=== PATIENT | male | born 1940 | race Caucasian/White ===

== ENCOUNTER → 2017-11-06 11:05 | Outpatient (CLI) | payer OTHER, SELFPAY | PROVIDERS: Family Provider Physician Assistant; PCP Physician Assistant; Visit Provider Urology | DX: Z12.5 Encounter for screening for malignant neoplasm of prostate (principal) | CPT/HCPCS: 36415; 84153 ==

== ENCOUNTER → 2018-01-02 08:27 | Outpatient (CLI) | payer OTHER, SELFPAY ==
--- NOTE | 2018-01-02 | DI.CT.S_ITS ---
PROCEDURE: CT SINUS SCREEN WO CON INDICATIONS: Right sided nose and maxillary discomfort TECHNIQUE: Noncontrast 3.0 mm axial images acquired from the frontal sinuses to the mid-sella, with coronal and sagittal reformats. For radiation dose reduction, the following was used: automated exposure control, adjustment of mA and/or kV according to patient size. COMPARISON: [facility], CT, SINUS WITHOUT CONTRAST, 04/11/2011, 11:19. [facility], CT, HEAD WITHOUT CONTRAST, 09/18/2014, 18:38. FINDINGS: Image quality: Excellent. Maxillary Sinuses: No bony remodeling or destruction. Sinuses are clear. Ethmoid Air Cells: No bony remodeling or destruction. Sinuses are clear. Sphenoid Sinuses: No bony remodeling or destruction. Sinuses are clear. Frontal Sinuses: No bony remodeling or destruction. Sinuses are clear. Ostiomeatal Complexes: Ostiomeatal complexes are patent, yet are constitutionally narrowed. Infraorbital air cells are seen. Miscellaneous: Visualized intra-orbital contents are normal. No eneida bullosa or paradoxical turbinate curvature. There is mild rightward nasal septal deviation. IMPRESSION: No significant active paranasal sinus disease is seen. Patent, yet constitutionally narrowed ostiomeatal complexes. Dictated by: Raheem Rosenbaum M.D. on 01/02/2018 at 8:40 Approved by: Raheem Rosenbaum M.D. on 01/02/2018 at 8:43
== END ==
PROVIDERS: PCP Physician Assistant; Visit Provider Otolaryngology
DX: J30.89 Other allergic rhinitis (principal)
CPT/HCPCS: 70486

== ENCOUNTER → 2018-03-21 10:19 | Outpatient (CLI) | payer OTHER, SELFPAY ==
[2018-03-21 11:00] LABS: BUN Creatinine Ratio 15.5 (6-22); Blood Urea Nitrogen 17 mg/dL (9-20); Calcium 9.1 mg/dL (8.4-10.2); Carbon Dioxide 28 mmol/L (22-32); Chloride 105 mmol/L (98-107); Estimated Glomerular Filt Rate > 60.0 mL/min (>60); Glucose 92 mg/dL (80-110); HEMOLYSIS < 15 (0-50); Potassium 4.2 mmol/L (3.4-5.1); Sodium 145 mmol/L (137-145)
[2018-03-21 11:48] LABS: Creatinine Urine Random 49.7 mg/dL
[2018-03-21 11:57] LABS: Microalbumin Urine Random < 0.6 mg/dL (0-1.6)
== END ==
PROVIDERS: PCP Physician Assistant; Visit Provider Physician Assistant
DX: I10 Essential (primary) hypertension (principal)
CPT/HCPCS: 36415; 80048; 82043; 82570

== ENCOUNTER → 2018-12-18 09:14 | Outpatient (CLI) | payer OTHER, SELFPAY | PROVIDERS: PCP Physician Assistant; Visit Provider Urology | DX: Z12.5 Encounter for screening for malignant neoplasm of prostate (principal) | CPT/HCPCS: 36415; 84153 ==

== ENCOUNTER → 2019-03-12 08:13 | Outpatient (CLI) | payer OTHER, SELFPAY ==
--- NOTE | 2019-03-12 | DI.US.S_ITS ---
PROCEDURE: US RENAL COMPLETE INDICATIONS: INCOMPLETE BLADDER EMPTYING TECHNIQUE: Real-time scanning was performed of the kidneys and bladder, with image documentation. COMPARISON: [facility], US, RENAL COMPLETE, 10/22/2015, 13:14. [facility], CT, KIDNEY/ URETER/BLADDER, 11/03/2015, 10:48. [facility], CT, KIDNEY/ URETER/BLADDER, 06/19/2013, 12:15. FINDINGS: Kidneys: Kidneys are normal in size. Right kidney measures 10.6 cm long; left kidney measures 13.4 cm long. Right renal cortical thickness is 1.2 cm; left renal cortical thickness is 1.3 cm. Renal cortical echotexture is normal. No hydronephrosis or nephrolithiasis. No suspicious solid mass lesions. There are 2 simple left renal cysts, largest measuring up to 2.2 cm. Bladder: Pre-void bladder volume is 280 mL. Post-void residual is 277 mL. Pre-void images demonstrate no intraluminal masses or stones. On pre-void images, neither ureteral jets are noted with color Doppler interrogation. (Of note, ureteral jets may not be detectable in up to 25% of cases due to insufficient differences in specific gravity between ureteral and bladder urine). Miscellaneous: No free pelvic fluid. IMPRESSION: 1. No evidence of hydronephrosis. 2. Large 277 cc post void residual volume. Dictated by: Alejandro Bobby [facility] Interpreted: Naun Connolly MD on 03/12/2019 at 9:17 Approved by: Naun Connolly M.D. on 03/12/2019 at 16:34
== END ==
PROVIDERS: PCP Physician Assistant; Visit Provider Urology
DX: R33.9 Retention of urine, unspecified (principal); Z87.442 Personal history of urinary calculi
CPT/HCPCS: 76770

== ENCOUNTER → 2019-05-02 07:59 | Outpatient (CLI) | payer OTHER, SELFPAY ==
[2019-05-02 09:03] LABS: Chloride 103 mmol/L (98-107); Cholesterol 162 mg/dL (140-199); HEMOLYSIS < 15 (0-50); Potassium 4.1 mmol/L (3.4-5.1); Sodium 140 mmol/L (137-145)
[2019-05-02 09:22] LABS: BUN Creatinine Ratio 15.8 (6-22); Blood Urea Nitrogen 19 mg/dL (9-20); Calcium 9.3 mg/dL (8.4-10.2); Carbon Dioxide 29 mmol/L (22-32); Estimated Glomerular Filt Rate 58.7 mL/min (>60); Glucose 96 mg/dL (80-110); HDL Cholesterol 50 mg/dL (40-60); LDL Cholesterol Calculated 95 mg/dL (<100); Triglycerides 85 mg/dL (35-150)
[2019-05-06 21:44] LABS: Fecal Immunochemical Test NOT DETECTED (NOT DETECTED)
== END ==
PROVIDERS: PCP Family Medicine; Referring Provider Family Medicine; Visit Provider Family Medicine
DX: Z13.220 Encounter for screening for lipoid disorders (principal); I10 Essential (primary) hypertension
CPT/HCPCS: 36415; 80048; 80061; 82274

== ENCOUNTER → 2019-09-30 15:06 | Outpatient (CLI) | payer OTHER, SELFPAY ==
--- NOTE | 2019-09-30 15:08 | DI.RAD.S_ITS ---
PROCEDURE: XR LUMBAR SPINE MIN 4V INDICATIONS: Back Pain TECHNIQUE: 5 views of the lumbar spine were acquired. COMPARISON: None. FINDINGS: Bones: 5 nonrib-bearing vertebrae are present. There is normal bony alignment. Mild to moderate degenerative disc disease is present along the lumbosacral spine, but there is no sign of subluxation. Facet osteoarthritis is mild to the L4-5 and especially the L5-S1 level where moderate facet osteoarthritis can be seen. No vertebral body compression fractures. No suspicious bony lesions. Soft tissues: Overlying bowel gas pattern is normal. No suspicious soft tissue calcifications. Oblique images: No pars defects. IMPRESSION: Mild to moderate degenerative changes as discussed over the lumbosacral spine most prominent at L4-5 and L5-S1. No compression fracture associated. Dictated by: Timoteo Conteh M.D. on 09/30/2019 at 15:53 Approved by: Timoteo Conteh M.D. on 09/30/2019 at 15:54
== END ==
PROVIDERS: PCP Family Medicine; Referring Provider Family Medicine; Visit Provider Family Medicine
DX: M54.9 Dorsalgia, unspecified (principal); M47.816 Spondylosis without myelopathy or radiculopathy, lumbar region; M47.817 Spondylosis without myelopathy or radiculopathy, lumbosacral region
CPT/HCPCS: 72110

== ENCOUNTER 2020-04-24 18:42 | Inpatient (IN) | payer OTHER, SELFPAY ==
--- NOTE | 2020-04-24 18:43 | DI.RAD.S_ITS ---
PROCEDURE: XR HIP W PEL IF DONE LT 2V INDICATIONS: fall with hip pain TECHNIQUE: AP pelvis with lateral view(s) of the left hip(s). COMPARISON: None. FINDINGS: Bones: Moderately displaced left subcapital femoral neck fracture which demonstrates moderate angulation. Pelvic ring appears intact. No suspicious bony lesions. Soft tissues: The visualized bowel gas pattern is normal. No suspicious soft tissue calcifications. IMPRESSION: Left subcapital femoral neck fracture as above Dictated by: David Guillermo M.D. on 04/24/2020 at 19:03 Approved by: David Guillermo M.D. on 04/24/2020 at 19:04
[2020-04-24 18:47] VITALS: BP 176/97; PULSE 98; RESP 16; TEMP 37.1; O2SAT 95; BMI 27.9
[2020-04-24 19:18] LABS: Add Manual Diff / Slide Review NO; Basophils Absolute Auto 0 /uL (0-100); Basophils Percent Auto 0.5 % (0-2); Eosinophils Absolute Auto 100 /uL (0-450); Eosinophils Percent Auto 0.8 % (2-4); Hemoglobin 13.8 g/dL (13.5-17.5); Lymphocytes Absolute Auto 1400 /uL (1100-4500); Lymphocytes Percent Auto 21.5 % (25-40); Mean Corpuscular HGB Conc 32.7 % (30-36); Mean Corpuscular Hemoglobin 31.2 PG (26-34); Mean Corpuscular Volume 95.2 fL (80-100); Monocytes Absolute Auto 400 /uL (0-900); Monocytes Percent Auto 6.6 % (3-14); Neutrophils Absolute Auto 4700 /uL (1500-7000); Neutrophils Percent Auto 70.6 % (50-75); Platelet Count 176 X10^3/uL (150-400); Red Blood Cell Count 4.41 X10^6/uL (4.5-5.9); Red Cell Distribution Width 13.1 % (11.6-14.8); White Blood Cell Count 6.6 X10^3/uL (4.5-11.0)
[2020-04-24 19:24] LABS: COVID19 -Nasal RAPID Negative (Negative)
[2020-04-24 19:28] LABS: BUN Creatinine Ratio 14.7 (6-22); Blood Urea Nitrogen 17 mg/dL (9-20); Calcium 8.5 mg/dL (8.4-10.2); Carbon Dioxide 28 mmol/L (22-32); Chloride 106 mmol/L (98-107); Estimated Glomerular Filt Rate > 60.0 mL/min (>60); Glucose 127 mg/dL (80-110); HEMOLYSIS < 15 (0-50); Potassium 3.6 mmol/L (3.4-5.1); Sodium 135 mmol/L (137-145)
--- NOTE | 2020-04-24 19:33 | ED.LOWEXIN ---
HPI - Extremity Injury (Lower) General Chief Complaint: Extremity Injury, Lower Stated Complaint: GLF, Left hip pain Time Seen by Provider: 04/24/20 18:43 Source: EMS Mode of arrival: EMS Limitations: no limitations History of Present Illness HPI Narrative: 79M nonsmoker with history of BPH presents by EMS for evaluation of severe left hip pain after a ground level fall just prior to arrival. He was in his normal state of health prior to the incident. He tripped over a local retaining wall and landed directly on his left hip. He denies any head neck back pain. He had no loss of consciousness and has full recall the event. He has severe left hip pain and is unable to ambulate. He denies any numbness, tingling weakness. He denies any prodromal symptoms such as dizziness, weakness or lightheadedness. He has had no exposure to persons with known COVID and denies any fever or chills. MD complaint: hip injury Onset (ago): minute(s) Injury: Left: hip Type of Injury: blunt Place: street/outdoors Severity: severe Relieving factors: immobilization and rest Exacerbating factors: weight bearing, movement and palpation Context: fall and direct blow Associated symptoms: unable to bear weight Other symptoms: none Treatments prior to arrival: spinal immobilization Related Data Home Medications Medication Instructions Recorded Confirmed ibuprofen 400 mg PO Q6H PRN #0 03/09/11 04/24/20 aspirin 81 mg tablet,delayed 81 mg PO DAILY 02/22/18 04/24/20 release cetirizine 10 mg tablet 10 mg PO DAILY tab 02/22/18 04/24/20 bphazrnipagq-dzp-acwug acid-vit 1 tab PO DAILY 02/22/18 04/24/20 K-lycop 400 mcg-20 mcg-370 mcg tablet tamsulosin 0.4 mg capsule 0.8 mg PO BEDTIME cap 02/22/18 04/25/20 Respironics Dreamstation CPAP #1 ea 06/20/18 04/24/20 clobetasol 0.05 % topical cream 1 applictn TOP BID PRN gram 12/19/18 04/24/20 finasteride 5 mg tablet 5 mg PO BEDTIME tab 12/19/18 04/24/20 clindamycin phosphate 1 % topical See Rx Instructions TOP BID PRN 04/30/19 04/24/20 solution ipratropium bromide 0.03 % nasal 2 spray NASAL BID 04/30/19 04/25/20 spray guaifenesin [Guaifenesin LA] 600 mg PO BID 04/24/20 04/24/20 Previous Rx's Medication Instructions Recorded tramadol 50 mg tablet 50 mg PO BID PRN #20 tab 09/30/19 Allergies Allergy/AdvReac Type Severity Reaction Status Date / Time adhesive tape Allergy Intermediate skin Verified 04/25/20 09:21 callus like alligator skin. latex [LATEX] Allergy Intermediate SKIN Verified 04/25/20 09:21 CALLUS LIKE ALLIGATOR SKIN Review of Systems Constitutional Constitutional: Denies chills, Denies fatigue, Denies fever(s), Denies frequent falls, Denies lethargy and Denies weakness Eyes Eyes: Denies change in vision, Denies eye discharge, Denies irritation and Denies loss of vision ENT Ears, Nose, Mouth, and Throat: Denies change in voice, Denies dizziness, Denies neck pain, Denies sore throat and Denies throat swelling Cardiovascular Cardiovascular: Denies chest pain, Denies irregular heart rhythm, Denies lightheadedness, Denies palpitations, Denies dyspnea, Denies dyspnea on exertion and Denies orthopnea Respiratory Respiratory: Denies cough, Denies dyspnea, Denies dyspnea on exertion and Denies wheezing Gastrointestinal Gastrointestinal: Denies abdominal pain, Denies change in bowel habits, Denies diarrhea, Denies nausea and Denies vomiting Musculoskeletal Musculoskeletal: Reports arthralgias, Reports limited range of motion, Denies neck pain and Denies numbness Integumentary/Breasts Skin/Breast: Denies pruritus, Denies erythema, Denies rash and Denies wounds Neurologic Neurologic: Denies behavioral changes, Denies confusion, Denies dizziness, Denies frequent falls, Denies loss of vision, Denies numbness and Denies weakness Psychiatric Psychiatric: Denies anxiety, Denies behavioral changes, Denies confusion, Denies depression, Denies homicidal ideation and Denies suicidal ideation Endocrine Endocrine: Denies fatigue, Denies flushing and Denies palpitations Hematologic/Lymphatic Hematologic/Lymphatic: Denies easy bruising Allergic/Immunologic Allergic/Immunologic: Denies urticaria, Denies throat swelling and Denies wheezing Patient History Medical History Allergies Chicken pox Chronic back pain Chronic cough Essential (primary) hypertension Excessive daytime sleepiness Hamstring strain History of basal cell carcinoma History of hypertension Measles Mumps Obstructive sleep apnea of adult Screen for colon cancer Sinusitis Surgical History Anesthesia Broken wrist (~1989) History of cataract removal with insertion of prosthetic lens History of laminectomy (~1986) History of nephrolithotomy with removal of calculi History of removal of cyst (~2004) History of testicular surgery History of tonsillectomy History of vasectomy Skin lesion (~2007) Status post hernia repair Family History Father Diabetes mellitus Heart disease Stroke Prostate cancer Mother Cancer Nervous breakdown Sister Cancer Grandfather Heart disease Grandmother Heart disease Grandfather No problems noted. Social History marital status: details: eneida Yee, lives in [place] household members: spouse lives independently: Yes caregiver/support person: No Smoking Status: Never smoker second hand exposure: No alcohol intake: never substance use type: does not use Smoking Status: Never smoker Substance Use Type: does not use Exam Narrative Exam Narrative: GENERAL: [71] year old patient appears stated age. Well-nourished, well-developed patient, in mild distress. GCS 15 HEAD: Atraumatic. Normocephalic. EYES: Pupils equal round and reactive. Extraocular motions intact. No scleral icterus. No injection or drainage. ENT: Nose without bleeding, purulent drainage. Throat without erythema, tonsillar hypertrophy or exudate. Airway patent. NECK: Trachea midline. Non tender CARDIOVASCULAR: Regular rate and rhythm without murmurs, gallops, or rubs. RESPIRATORY: Clear to auscultation. Breath sounds equal bilaterally. No wheezes, rales, or rhonchi. GASTROINTESTINAL: Abdomen soft, non-tender, nondistended. EXTREMITIES: No obvious shortening or external rotation, severe left hip pain with palpation. Closed, isolated neurovascularly intact BACK: Nontender without deformity or crepitance. No flank tenderness. NEURO: AOx3. SKIN: No rash or erythema of visible areas Initial Vital Signs Initial Vital Signs: Vital Signs Temperature 98.7 F 04/24/20 18:47 Pulse Rate 98 H 04/24/20 18:47 Respiratory Rate 16 04/24/20 18:47 Blood Pressure 176/97 H 04/24/20 18:47 Pulse Oximetry 95 04/24/20 18:47 Course Orders Ordered: Acetaminophen (Acetaminophen 325 Mg Tablet) 650 mg PO TID [facility] Last Admin: 04/25/20 20:17 Dose: 650 mg Documented by: Admin: 04/25/20 15:45 Dose: 650 mg Documented by: JENNIFER Docusate Sodium (Docusate 100 Mg Capsule) 100 mg PO BID [facility] Last Admin: 04/25/20 20:17 Dose: 100 mg Documented by: JENNIFER Enoxaparin Sodium (Enoxaparin 40 Mg/0.4 Ml Syringe) 40 mg SUBCUT DAILY [facility] Lactated Ringer's (Lactated Ringers) 1,000 mls @ 125 mls/hr IV CONT [facility] Last Admin: 04/25/20 22:11 Dose: 125 mls/hr Documented by: Infusion: 04/25/20 22:11 Dose: 125 mls/hr Documented by: Admin: 04/25/20 14:17 Dose: 125 mls/hr Documented by: FANNY Cefazolin Sodium/Dextrose (Ancef) 2 gm in 100 mls @ 200 mls/hr IV Q8H [facility] Stop: 04/26/20 02:29 Last Infusion: 04/25/20 20:07 Dose: 0 mls/hr Documented by: Admin: 04/25/20 17:56 Dose: 200 mls/hr Documented by: JENNIFER Naloxone HCl (Naloxone 0.4 Mg/Ml Vial) 0.2 mg IV Q2MIN PRN PRN Reason: Opiate Reversal Naloxone HCl (Naloxone 0.4 Mg/Ml Vial) 0.1 mg IV Q30MIN PRN PRN Reason: Nausea Stop: 04/26/20 13:56 Ondansetron HCl (Ondansetron 4 Mg/2 Ml Inj) 4 mg IV Q4HR PRN PRN Reason: Nausea And Vomiting Ondansetron HCl (Ondansetron 4 Mg Odt) 4 mg PO Q4HR PRN PRN Reason: Nausea Oxycodone HCl (Oxycodone Ir 5 Mg Tablet) 5 mg PO Q3HR PRN PRN Reason: Pain, Moderate (4-6) Pantoprazole Sodium (Pantoprazole 20 Mg Tablet) 20 mg PO 0600 [facility] Last Admin: 04/25/20 05:29 Dose: Not Given Documented by: DIPESH Polyethylene Glycol (Polyethylene Glycol 3350 17 Gm Powd.Pack) 17 gm PO DAILY PRN PRN Reason: Constipation Tamsulosin HCl (Tamsulosin 0.4 Mg Capsule) 0.8 mg PO BEDTIME [facility] Last Admin: 04/25/20 20:18 Dose: 0.8 mg Documented by: JENNIFER Discontinued Medications Acetaminophen (Acetaminophen 325 Mg Tablet) 650 mg PO Q6HR PRN PRN Reason: Fever/Mild Pain (1-3) Acetaminophen (Acetaminophen 325 Mg Tablet) 650 mg PO PACUNOW PRN PRN Reason: Pain, Mild (1-3) Hydrocodone Bitart/Acetaminophen (Hydrocodone/Acet 5/325 Tablet) 2 tab PO Q4HR PRN PRN Reason: Pain, Severe (7-10) Last Admin: 04/25/20 06:37 Dose: 2 tab Documented by: Admin: 04/24/20 22:06 Dose: 2 tab Documented by: UZIEL Bupivacaine HCl/Epinephrine Bitart (Bupivacaine 0.25% W/ Epi (Pf) 10 Ml Vial) 30 ml INJ NOW ONE Stop: 04/25/20 11:43 Last Admin: 04/25/20 11:42 Dose: 30 ml Documented by: AUDRA Bupivacaine Liposome (Bupivacaine Liposome 266 Mg/20 Ml Vial) 266 mg INJ INTRA-OP ONE Stop: 04/25/20 09:16 Last Admin: 04/25/20 10:18 Dose: 266 mg Documented by: ALMITA Sodium Chloride 250 ml/ (Epinephrine HCl 1 mg) 0 ml IRR INTRA-OP ONE Stop: 04/25/20 09:16 Last Admin: 04/25/20 10:18 Dose: 10 ml Documented by: TOO Docusate Sodium (Docusate 100 Mg Capsule) 100 mg PO BID [facility] Last Admin: 04/25/20 08:31 Dose: Not Given Documented by: Admin: 04/24/20 22:06 Dose: 100 mg Documented by: UZIEL Fentanyl (Fentanyl 100 Mcg/2 Ml Inj) 0 mcg IV Q5M PRN PRN Reason: Pain, Moderate (4-6) Finasteride (Finasteride 5 Mg Tablet) 5 mg PO BEDTIME [facility] Last Admin: 04/24/20 23:54 Dose: 5 mg Documented by: DIPESH Guaifenesin (Guaifenesin Er 600 Mg Tab) 600 mg PO BID [facility] Heparin Sodium (Porcine) (Heparin 5,000 Unit/Ml Vial) 5,000 unit SUBCUT NOW ONE Stop: 04/24/20 20:38 Last Admin: 04/24/20 21:51 Dose: Not Given Documented by: UZIEL Hydromorphone HCl (Hydromorphone 0.5 Mg Inj) 0.5 mg IV NOW ONE Stop: 04/24/20 19:50 Last Admin: 04/24/20 19:51 Dose: 0.5 mg Documented by: JEANETTE Sodium Chloride (Normal Saline 0.9%) 1,000 mls @ 100 mls/hr IV CONT [facility] Last Infusion: 04/25/20 14:09 Dose: 0 mls/hr Documented by: Admin: 04/25/20 08:30 Dose: 100 mls/hr Documented by: Infusion: 04/25/20 08:05 Dose: 100 mls/hr Documented by: Admin: 04/24/20 22:05 Dose: 100 mls/hr Documented by: UZIEL Lactated Ringer's (Lactated Ringers) 1,000 mls @ 42 mls/hr IV NOW ONE Stop: 04/26/20 08:59 Last Infusion: 04/25/20 13:27 Dose: 0 mls/hr Documented by: Admin: 04/25/20 11:13 Dose: 42 mls/hr Documented by: Infusion: 04/25/20 11:13 Dose: 42 mls/hr Documented by: Admin: 04/25/20 09:12 Dose: 42 mls/hr Documented by: KENDRICK Cefazolin Sodium/Dextrose (Ancef) 2 gm in 100 mls @ 200 mls/hr IV NOW ONE Stop: 04/25/20 09:44 Last Infusion: 04/25/20 10:00 Dose: 0 mls/hr Documented by: Admin: 04/25/20 09:28 Dose: 200 mls/hr Documented by: MAGAN Loratadine (Loratadine 10 Mg Tablet) 10 mg PO DAILY [facility] Last Admin: 04/25/20 08:31 Dose: Not Given Documented by: JUANA Metoprolol Tartrate (Metoprolol Ir 25 Mg Tablet) 25 mg PO NOW ONE Stop: 04/24/20 20:53 Last Admin: 04/24/20 22:06 Dose: 25 mg Documented by: UZIEL Naloxone HCl (Naloxone 0.4 Mg/Ml Vial) 0.2 mg IV Q2MIN PRN PRN Reason: Opiate Reversal Naloxone HCl (Naloxone 0.4 Mg/Ml Vial) 0.1 mg IV NOW ONE Stop: 04/25/20 13:57 Last Admin: 04/25/20 14:10 Dose: Not Given Documented by: FANNY Naloxone HCl (Naloxone 0.4 Mg/Ml Vial) 0.1 mg IV NOW ONE Stop: 04/25/20 13:57 Last Admin: 04/25/20 14:10 Dose: Not Given Documented by: FANNY Non-Formulary Medication (Cetirizine [Zyrtec]) 10 mg PO DAILY [facility] Non-Formulary Medication (Guaifenesin) 600 mg PO BID [facility] Last Admin: 04/25/20 00:14 Dose: Not Given Documented by: DIPESH Ondansetron HCl (Ondansetron 4 Mg Odt) 4 mg PO Q8HR PRN PRN Reason: Nausea And Vomiting Ondansetron HCl (Ondansetron 4 Mg/2 Ml Inj) 4 mg IV NOW PRN PRN Reason: Nausea And Vomiting Oxycodone HCl (Oxycodone Ir 5 Mg Tablet) 5 mg PO PACUNOW PRN PRN Reason: Mild or moderate pain Oxycodone/Acetaminophen (Oxycodone/Acetaminophen 5/325 Tablet) 1 tab PO PACUNOW PRN PRN Reason: Mild or Moderate Pain Sennosides (Sennosides 8.6 Mg Tablet) 17.2 mg PO BEDTIME [facility] Last Admin: 04/24/20 22:06 Dose: 17.2 mg Documented by: UZIEL Tamsulosin HCl (Tamsulosin 0.4 Mg Capsule) 0.8 mg PO BEDTIME [facility] Last Admin: 04/24/20 23:53 Dose: 0.8 mg Documented by: DIPESH Tramadol HCl (Tramadol 50 Mg Tablet) 50 mg PO BID PRN PRN Reason: pain Last Admin: 04/24/20 23:53 Dose: 50 mg Documented by: DIPESH Tranexamic Acid (Tranexamic Acid 1,000 Mg Vial) 1,000 mg INJ INTRA-OP PRN PRN Reason: intraop Last Admin: 04/25/20 12:03 Dose: 1,000 mg Documented by: Admin: 04/25/20 10:00 Dose: 1,000 mg Documented by: ALMITA Consultations Consultation #1: discussed with ortho (Love), keep NPO after midnight. Will take to OR tomorrow. Admit to medicine Vital Signs Vital signs: Vital Signs - 8 hr 04/24/20 18:47 Temperature 98.7 F Pulse Rate 98 H Respiratory Rate 16 Blood Pressure 176/97 H Pulse Oximetry 95 MDM - Extremity Injury (Lower) Lab Data Result diagrams: 04/25/20 05:05 04/25/20 05:05 Labs: Lab Results 04/24/20 04/24/20 04/24/20 Range/Units 19:06 19:10 19:10 WBC 6.6 (4.5-11.0) X10^3/uL RBC 4.41 L (4.5-5.9) X10^6/uL Hgb 13.8 (13.5-17.5) g/dL Hct 42.0 (41-53) % MCV 95.2 (80-100) fL MCH 31.2 (26-34) PG MCHC 32.7 (30-36) % RDW 13.1 (11.6-14.8) % Plt Count 176 (150-400) X10^3/uL Neut % (Auto) 70.6 (50-75) % Lymph % (Auto) 21.5 L (25-40) % Bryan % (Auto) 6.6 (3-14) % Eos % (Auto) 0.8 L (2-4) % Baso % (Auto) 0.5 (0-2) % Neut # (Auto) 4700 (1781-8049) /uL Lymph # (Auto) 1400 (9309-3887) /uL Bryan # (Auto) 400 (0-900) /uL Eos # (Auto) 100 (0-450) /uL Baso # (Auto) 0 (0-100) /uL PT (10.1-12.7) SECONDS INR (0.9-1.3) Sodium 135 L (137-145) mmol/L Potassium 3.6 (3.4-5.1) mmol/L Chloride 106 (98-107) mmol/L Carbon Dioxide 28 (22-32) mmol/L BUN 17 (9-20) mg/dL Creatinine 1.16 (0.66-1.25) mg/dL Estimated GFR > 60.0 (>60) mL/min BUN/Creatinine Ratio 14.7 (6-22) Glucose 127 H (80-110) mg/dL Calcium 8.5 (8.4-10.2) mg/dL SARS-CoV-2 (PCR) Negative (Negative) 04/24/20 Range/Units 19:10 WBC (4.5-11.0) X10^3/uL RBC (4.5-5.9) X10^6/uL Hgb (13.5-17.5) g/dL Hct (41-53) % MCV (80-100) fL MCH (26-34) PG MCHC (30-36) % RDW (11.6-14.8) % Plt Count (150-400) X10^3/uL Neut % (Auto) (50-75) % Lymph % (Auto) (25-40) % Bryan % (Auto) (3-14) % Eos % (Auto) (2-4) % Baso % (Auto) (0-2) % Neut # (Auto) (3514-4902) /uL Lymph # (Auto) (4340-0595) /uL Bryan # (Auto) (0-900) /uL Eos # (Auto) (0-450) /uL Baso # (Auto) (0-100) /uL PT 13.2 H (10.1-12.7) SECONDS INR 1.2 (0.9-1.3) Sodium (137-145) mmol/L Potassium (3.4-5.1) mmol/L Chloride (98-107) mmol/L Carbon Dioxide (22-32) mmol/L BUN (9-20) mg/dL Creatinine (0.66-1.25) mg/dL Estimated GFR (>60) mL/min BUN/Creatinine Ratio (6-22) Glucose (80-110) mg/dL Calcium (8.4-10.2) mg/dL SARS-CoV-2 (PCR) (Negative) Imaging Data Extremity x-ray #1: Radiologist's Impression: [address] [id number] ReportSigned Patient: David Vivar [facility]#: [id number]: 2Acct:[id number]/Sex: 79 / MDate of Service: 04/24/20Loc: EDAccession Number: [id number] Procedure: XR hip w pel if done LT 2V Ordering Provider: Stu Esparza D.O. PROCEDURE: XR HIP W PEL IF DONE LT 2V INDICATIONS: fall with hip pain TECHNIQUE: AP pelvis with lateral view(s) of the left hip(s). COMPARISON: None. FINDINGS: Bones: Moderately displaced left subcapital femoral neck fracture which demonstrates moderate angulation. Pelvic ring appears intact. No suspicious bony lesions. Soft tissues: The visualized bowel gas pattern is normal. No suspicious soft tissue calcifications. IMPRESSION: Left subcapital femoral neck fracture as above Dictated by: David Guillermo M.D. on 04/24/2020 at 19:03 Approved by: David Guillermo M.D. on 04/24/2020 at 19:04 Discharge Plan Departure Patient Disposition: Admitted As Inpatient Clinical Impression: Closed hip fracture Qualifiers: Encounter type: initial encounter Laterality: left Qualified Code(s): S72.002A - Fracture of unspecified part of neck of left femur, initial encounter for closed fracture Admit Date/Time: 04/24/20 19:35 Admit Provider: Sandra De Jesus
[2020-04-24] MEDS: HYDROMORPHONE 0.5 MG INJ IV (19:51)
[2020-04-24 20:05] VITALS: BP 181/97; PULSE 78; RESP 20; TEMP 36.9; O2SAT 93
[2020-04-24 20:35] VITALS: O2SAT 93
--- NOTE | 2020-04-24 20:43 | P.HP_ITS ---
History of Present Illness History of Present Illness Date Patient Seen: 04/24/20 Time Patient Seen: 20:32 Chief complaint: GLF, Left hip pain Narrative: Patient is a 79-year-old male at [facility], who presented to the emergency room via ambulance following a ground level fall and left hip injury. Patient has a history of sleep apnea, BPH, basal cell carcinoma, kidney stones, chronic sinusitis, and history of hypertension that he was able to resolve with diet and lifestyle changes. Upon admit patient reports that he was trying to get onto his tractor when he tripped over a raised piece of concrete, a colleague was present, patient was unable to get up independently, denies hitting his head or loss of consciousness. Patient denies experiencing any ches t pain, shortness of breath, shortness of breath, changes in vision, balance or coordination issues, weakness, dizziness prior during or following fall. His colleague had call ambulance for transport approximately 5:00 p.m. afternoon. At this time patient states that his pain is well controlled at a 6/10 due to medication management the emergency room. Patient denies any recent illness, frequent falls, injury, or trauma, any abnormal bruising bleeding disorders, or skin conditions or infection. Patient History Medical History Allergies Chicken pox Chronic back pain Chronic cough Essential (primary) hypertension Excessive daytime sleepiness Hamstring strain History of basal cell carcinoma History of hypertension Measles Mumps Obstructive sleep apnea of adult Screen for colon cancer Sinusitis Surgical History Anesthesia Broken wrist (~1989) History of cataract removal with insertion of prosthetic lens History of laminectomy (~1986) History of nephrolithotomy with removal of calculi History of removal of cyst (~2004) History of testicular surgery History of tonsillectomy History of vasectomy Skin lesion (~2007) Status post hernia repair Family & Social History Family History Father Diabetes mellitus Heart disease Stroke Prostate cancer Mother Cancer Nervous breakdown Sister Cancer Grandfather Heart disease Grandmother Heart disease Grandfather No problems noted. Social History: household members spouse lives independently Yes caregiver/support person No Safety & Behavioral: Feels Safe in Current Yes Environment Been Physically Hurt or No Threatened By a Person Tobacco & Substance use: Smoking Status Never smoker alcohol intake never Substance Use Type does not use Meds Home Medications and Allergies Home Medications Medication Instructions Recorded Confirmed Type IBUPROFEN (IBU) 400 mg PO PRN #0 03/09/11 04/24/20 History aspirin 81 mg tablet,delayed 81 mg PO DAILY 02/22/18 04/24/20 History release cetirizine 10 mg tablet 10 mg PO DAILY tab 02/22/18 04/24/20 History tqbcuieojmza-vpj-hacdu acid-vit 1 tab PO DAILY 02/22/18 04/24/20 History K-lycop 400 mcg-20 mcg-370 mcg tablet tamsulosin 0.4 mg capsule 0.8 mg PO BEDTIME cap 02/22/18 10/02/19 History Respironics Dreamstation CPAP #1 ea 06/20/18 04/24/20 History clobetasol 0.05 % topical cream 1 applictn TOP BID PRN gram 12/19/18 04/24/20 History finasteride 5 mg tablet 5 mg PO BEDTIME tab 12/19/18 04/24/20 History clindamycin phosphate 1 % topical See Rx Instructions TOP BID PRN 04/30/1904/24 History solution ipratropium bromide 0.03 % nasal 2 spray NASAL BID 04/30/19 10/02/19 History spray tramadol 50 mg tablet 50 mg PO BID PRN #20 tab 09/30/19 04/24/20 Rx guaifenesin [Guaifenesin LA] 600 mg PO BID 04/24/20 04/24/20 History Allergies Allergy/AdvReac Type Severity Reaction Status Date / Time adhesive tape Allergy Intermediate skin Verified 04/24/20 18:50 callus like alligator skin. latex [LATEX] Allergy Intermediate SKIN Verified 04/24/20 18:50 CALLUS LIKE ALLIGATOR SKIN Review of Systems Review of Systems ROS: Yes All systems reviewed with the patient and are negative except as otherwise documented Constitutional Constitutional: Reports system reviewed and no additional complaints, except as documented Eyes Eyes: Reports system reviewed and no additional complaints, except as documented ENT Ears, Nose, Mouth, and Throat: Yes system reviewed and no additional complaints, except as documented Cardiovascular Cardiovascular: Reports system reviewed and no additional complaints, except as documented Respiratory Respiratory: Reports system reviewed and no additional complaints, except as documented Gastrointestinal Gastrointestinal: Reports system reviewed and no additional complaints, except as documented Genitourinary Genitourinary: Reports system reviewed and no additional complaints, except as documented Musculoskeletal Musculoskeletal: Reports deformity, Reports arthralgias, Reports joint swelling, Reports limited range of motion and Reports radiating pain into limb Integumentary/Breasts Skin/Breast: Reports system reviewed and no additional complaints, except as documented Neurologic Neurologic: Reports system reviewed and no additional complaints, except as documented Psychiatric Psychiatric: Reports system reviewed and no additional complaints, except as documented Endocrine Endocrine: Reports system reviewed and no additional complaints, except as documented Hematologic/Lymphatic Hematologic/Lymphatic: Reports system reviewed and no additional complaints, except as documented Allergic/Immunologic Allergic/Immunologic: Reports system reviewed and no additional complaints, except as documented Exam Vital Signs (past 8 hours): - 04/24/20 18:47 Temperature 98.7 F Pulse Rate 98 H Respiratory Rate 16 Blood Pressure 176/97 H Pulse Oximetry 95 Oxygen Delivery Method Room Air Narrative Exam Narrative: General: Patient is a well-developed, well-nourished 79-year-old male, who appears younger than stated age in no distress at this time. HEENT: Normocephalic, atraumatic, extraocular muscles intact, oral pharynx is clear and mucous membranes are moist. Neck is supple and symmetric, trachea is midline, no adenopathy, no thyroid enlargement, nontender, no masses palpated. Negative for JVD Chest: Normal AP diameter and contour without kyphoscoliosis, no nasal flaring, retractions, or tachypneic labored Lungs: Auscultation of all lung javier are clear without adventitious sounds, wheezes, rhonchi, or rales. Cardio: S1 & S2 with regular rate and rhythm without murmur, rubs, or gallops, no carotid bruit, no cardiac pulsations present. Abdomen: Soft nontender, upon exam noted large protruding what appears to be a superior umbilical hernia. Bowel sounds are present hyperactive in all 4 quadrants without guarding or rebound, no CVA tenderness. Musculoskeletal: Muscle mass is equal, unable to test strength, no effusions, cyanosis, clubbing or edema present. radial and pedal pulses are normal. Skin: Warm dry and intact without rashes, ulcerations or petechiae. Neuro: Alert and orientated x3, sensation to touch intact, no gross deficits noted of cranial nerves. Psych: Patient has a well-kept appearance, appropriate affect, mental status attitude thought context and judgment are appropriate for age. Objective Labs Result Diagrams: 04/24/20 19:10 04/24/20 19:10 Labs: Laboratory Results - last 24 hr 04/24/20 04/24/20 04/24/20 19:06 19:10 19:10 WBC 6.6 RBC 4.41 L Hgb 13.8 Hct 42.0 MCV 95.2 MCH 31.2 MCHC 32.7 RDW 13.1 Plt Count 176 Neut % (Auto) 70.6 Lymph % (Auto) 21.5 L [place] % (Auto) 6.6 Eos % (Auto) 0.8 L Baso % (Auto) 0.5 Neut # (Auto) 4700 Lymph # (Auto) 1400 [place] # (Auto) 400 Eos # (Auto) 100 Baso # (Auto) 0 Sodium 135 L Potassium 3.6 Chloride 106 Carbon Dioxide 28 BUN 17 Creatinine 1.16 Estimated GFR > 60.0 BUN/Creatinine Ratio 14.7 Glucose 127 H Calcium 8.5 SARS-CoV-2 (PCR) Negative Assessment & Plan Assessment & Plan narrative: This patient requires acute care inpatient hospital management for left subcapital femoral neck fracture of the left hip due to ground level fall. The patient is at much higher risk for medical and surgical complications because of his sleep apnea, which is likely to impact his oxygenat ion, which may impair healing and recovery from surgery. These factors increase the difficulty and complexity of medical and surgical interventions and increases the chances of poor outcomes such as morbidity and mortality. 1. Left moderately displaced subcapital femoral neck fracture secondary to ground level fall, acute, stable, present on admission -ortho Dr. Velez consulted in ER -Left Hip Xray:Moderately displaced left subcapital femoral neck fracture which demonstrates moderate angulation. -patient scheduled for surgery tomorrow - Admitting vitals temp 98.4?, BP 181/97, HR 78, RR 20, SaO2 93% on room air -patient NPO for procedure, condom catheter placed, patient on strict bedrest, fall precautions in place -patient to be monitored on tele medicine, vital signs q.4 hours, intake and output monitored Q shift, weight measure daily, diet: -IV fluid normal saline 100 cc/hour -Patton catheter placed -LMW heparin held per Dr. Velez -manage patient's pain hydration and comfort -labs ordered: CBC, CMP, Mag, PT -Modified Caprini Risk of VTE score -2 (1.%5) risk for VTE, wells score -0, GCS- 15 -consults ordered physical therapy, occupational therapy, speech therapy, dietary, respiratory therapy. -prevention vaccine: Recommend seasonal flu, shingles, pneumonia, COVID-19 when available 2. Elevated blood pressure, likely secondary to hip fracture and sleep apnea, acute, present on admission -ordered 1 time does metoprolol 25 mg now. 3. Sleep apnea, acute on chronic, present on admission -respiratory consult, PAP 4. Abdominal mass, supra umbilical, nontender, acute present on it admit -suspect umbilical/abdominal hernia, patient states he has never observed this prior to my exam. Ordered abdominal ultrasound 5. BPH, chronic, stability unknown, present on admission -continue patient's tamsulosin and Finasteride Code status: Full Surrogate/plan of care: Spouse: Quentin PATTEN PCR: Negative VTE prophylaxis: Held per Dr. Velez order, surgery tomorrow, SCDs Scores GCS [place] coma scale eye opening: Spontaneous [place] coma scale verbal response: Orientated [place] coma scale motor response: Obey commands [place] coma scale total score: 15 Wells' Criteria for PE Clinical signs and symptoms of DVT: No PE is #1 Dx or equally likely: No Heart rate > 100: No Immobilization at least 3 days or surg in previous 4 weeks: No History of PE or DVT: No Hemoptysis: No Malignancy w/Treatment within 6 months or palliative: No Wells' PE Score total: 0
[2020-04-24 20:47] LABS: INR 1.2 (0.9-1.3); Prothrombin Time 13.2 SECONDS (10.1-12.7)
[2020-04-24 20:50] VITALS: BMI 28.4
[2020-04-24] MEDS: SODIUM CHLORIDE 0.9% 1,000 ML 100 ML IV (22:05)
[2020-04-24] MEDS: DOCUSATE 100 MG CAPSULE PO (22:06)
[2020-04-24] MEDS: HYDROCODONE/ACET 5/325 TABLET 2 TAB PO (22:06)
[2020-04-24] MEDS: METOPROLOL IR 25 MG TABLET PO (22:06)
[2020-04-24] MEDS: SENNOSIDES 8.6 MG TABLET 17.2 MG PO (22:06)
[2020-04-24 23:25] VITALS: BP 134/80; PULSE 76; RESP 18; TEMP 36.3; O2SAT 96
--- NOTE | 2020-04-24 23:33 | PC.ADMIT ---
Admission Note: The patient,David Vivar,79 y/o, was given written information regarding hospital policies, unit procedures and contact persons. Patient's smoking status: Never smoker. Pt arrived at 2003 to unit. Slider-board used to transfer to bed. Denies numbness to LLE, Pedal pulses equal and palpable. Able to wiggle toes. Oriented to room and call system. Supportive at bedside. Patton placed per orders. Snacks provided. Pt aware he will be NPO at [facility]. Per Dr. Aleman hold Heparin tonight. Vital Signs - 8 hr 04/24/20 18:47 04/24/20 20:05 04/24/20 20:35 Temperature 98.7 F 98.4 F Pulse Rate 98 H 78 Respiratory Rate 16 20 Blood Pressure 176/97 H 181/97 H Pulse Oximetry 95 93 93
[2020-04-24] MEDS: TRAMADOL 50 MG TABLET PO (23:53)
[2020-04-24] MEDS: TAMSULOSIN 0.4 MG CAPSULE 0.8 MG PO (23:53)
[2020-04-24] MEDS: FINASTERIDE 5 MG TABLET PO (23:54)
[2020-04-25] VITALS (26 sets, daily range): BP systolic 87–145; BP diastolic 46–93; PULSE 53–72; RESP 11–19; TEMP 35.9–37.1; O2SAT 79–100; BMI 28.4
--- NOTE | 2020-04-25 | DI.RAD.S_ITS ---
PROCEDURE: XR PELVIS 1-2V INDICATIONS: INTER-OP LEFT MARK TECHNIQUE: Single view(s) of the pelvis acquired. COMPARISON: None. FINDINGS: Single intraoperative image demonstrating femoral component of left hip arthroplasty. Dictated by: Henrry Gonzáles M.D. on 04/25/2020 at 12:55 Approved by: Henrry Gonzáles M.D. on 04/25/2020 at 12:56
--- NOTE | 2020-04-25 01:46 | PC.NURSE ---
AREA OF DISTENTION/PROTRUSION IN UMBILICAL REGION-MIDLINE, NEW TO PATIENT; NON-TENDER, SOFT TO THE TOUCH, DENIES PAIN. This was originally found by the evening nurse, Estrellita. An abdominal ultrasound has been ordered. [facility] [place] was able to get an appointment for this first thing in the morning 04/25, prior to surgery.
[2020-04-25 04:36] LABS: Appearance Urine UA CLEAR; Bacteria Urine None Seen; Bilirubin Urine UA NEGATIVE (NEGATIVE); Color Urine UA YELLOW; Glucose Urine UA NEGATIVE (Negative); Ketones Urine UA TRACE (NEGATIVE); Leukocyte Esterase Urine UA NEGATIVE (NEGATIVE); Nitrite Urine UA NEGATIVE (Negative); Occult Blood Urine UA 3+ (Negative); Protein Urine UA TRACE (Negative); Urobilinogen Urine UA 0.2 E.U./dL (0.2); pH Urine UA 6.5 (4.5-8.0)
[2020-04-25 05:08] LABS: RBC Urine 30-100/HPF (0-5/HPF); WBC Urine 0-1/HPF (0-5/HPF)
[2020-04-25 05:09] LABS: Calcium Oxalate Crystals Urine Occasional; Culture Indicated Urine Cult Not Indicated
[2020-04-25 05:44] LABS: Add Manual Diff / Slide Review NO; Alanine Aminotransferase 16 IU/L (<50); Albumin 3.3 g/dL (3.5-5.0); Albumin Globulin Ratio 1.4 (1.0-2.8); Alkaline Phosphatase 59 U/L (38-126); Aspartate Aminotransferase 24 IU/L (17-59); BUN Creatinine Ratio 16.5 (6-22); Basophils Absolute Auto 0 /uL (0-100); Basophils Percent Auto 0.3 % (0-2); Bilirubin Total 0.6 mg/dL (0.2-1.3); Blood Urea Nitrogen 17 mg/dL (9-20); Calcium 8.4 mg/dL (8.4-10.2); Carbon Dioxide 29 mmol/L (22-32); Chloride 108 mmol/L (98-107); Eosinophils Absolute Auto 100 /uL (0-450); Estimated Glomerular Filt Rate > 60.0 mL/min (>60); Globulin 2.3 g/dL (1.7-4.1); Glucose 104 mg/dL (80-110); HEMOLYSIS < 15 (0-50); Hematocrit 39.9 % (41-53); Lymphocytes Absolute Auto 1200 /uL (1100-4500); Lymphocytes Percent Auto 13.9 % (25-40); Magnesium 1.9 mg/dL (1.6-2.3); Mean Corpuscular HGB Conc 32.6 % (30-36); Mean Corpuscular Volume 95.1 fL (80-100); Monocytes Absolute Auto 800 /uL (0-900); Neutrophils Absolute Auto 6300 /uL (1500-7000); Neutrophils Percent Auto 74.8 % (50-75); Platelet Count 171 X10^3/uL (150-400); Potassium 4.1 mmol/L (3.4-5.1); Red Cell Distribution Width 12.8 % (11.6-14.8); Sodium 138 mmol/L (137-145); Total Protein 5.6 g/dL (6.3-8.2); White Blood Cell Count 8.4 X10^3/uL (4.5-11.0)
[2020-04-25] MEDS: HYDROCODONE/ACET 5/325 TABLET 2 TAB PO (06:37)
--- NOTE | 2020-04-25 07:00 | DI.US.S_ITS ---
PROCEDURE: US ABDOMEN LIMITED INDICATIONS: ABDOMINAL WALL LUMP POST FALL; POSSIBLE HERNIA TECHNIQUE: Real-time focused scanning was performed of the abdomen, with image documentation. COMPARISON: None. FINDINGS: Scanning is performed at the area of clinical periumbilical region. No findings of hernia can be seen, including with Valsalva. No masses or abnormal fluid collections can be seen. IMPRESSION: Negative for hernia. Note: No significant discrepancy from the preliminary report. Dictated by: Raheem Rosenbaum M.D. on 04/25/2020 at 7:14 Approved by: Raheem Rosenbaum M.D. on 04/25/2020 at 7:15
--- NOTE | 2020-04-25 08:18 | P.HP_ITS ---
History of Present Illness History of Present Illness Date Patient Seen: 04/25/20 Time Patient Seen: 08:18 Date of Onset of Symptoms: 04/24/20 Chief complaint: GLF, Left hip pain Narrative: Mr. Vivar is a 71-year-old male that tripped over a cement curb while getting onto a tractor last night. He fell directly on the lateral left hip. Had immediate pain and inability to ambulate. He was brought to [facility] emergency room where x-rays were taken and he was found to have a displaced left femoral neck fracture. He has an allergy to adhesive and latex. Was admitted to the medical service for optimization indicated for treatment of his displaced femoral neck fracture. Denies any pain or problems with his hip pre-injury. Denies any numbness tingling nausea or vomiting. Was noted to have a possibly new abdominal hernia and per report had an ultrasound on this. Denies any nausea vomiting or abdominal pain currently. Denies any injury or pain to his right lower extremity or upper extremities. Denies fevers or chill s. He lives independently. Does not require ambulatory Devices. Lives with his . Patient History Medical History (Updated 04/25/20 @ 08:32 by Princess Aleman MD) Allergies Chicken pox Chronic back pain Chronic cough Essential (primary) hypertension Excessive daytime sleepiness Hamstring strain History of basal cell carcinoma History of hypertension Measles Mumps Obstructive sleep apnea of adult Screen for colon cancer Sinusitis Surgical History Anesthesia Broken wrist (~1989) History of cataract removal with insertion of prosthetic lens History of laminectomy (~1986) History of nephrolithotomy with removal of calculi History of removal of cyst (~2004) History of testicular surgery History of tonsillectomy History of vasectomy Skin lesion (~2007) Status post hernia repair Family & Social History Family History Father Diabetes mellitus Heart disease Stroke Prostate cancer Mother Cancer Nervous breakdown Sister Cancer Grandfather Heart disease Grandmother Heart disease Grandfather No problems noted. Social History: household members spouse lives independently Yes caregiver/support person No Safety & Behavioral: Feels Safe in Current Yes Environment Been Physically Hurt or No Threatened By a Person Suicidal Ideation Description None Tobacco & Substance use: Smoking Status Never smoker alcohol intake never Substance Use Type does not use Meds Home Medications and Allergies Home Medications Medication Instructions Recorded Confirmed Type IBUPROFEN (IBU) 400 mg PO PRN #0 03/09/11 04/24/20 History aspirin 81 mg tablet,delayed 81 mg PO DAILY 02/22/18 04/24/20 History release cetirizine 10 mg tablet 10 mg PO DAILY tab 02/22/18 04/24/20 History krfziopzfrup-wlq-skjkr acid-vit 1 tab PO DAILY 02/22/18 04/24/20 History K-lycop 400 mcg-20 mcg-370 mcg tablet tamsulosin 0.4 mg capsule 0.8 mg PO BEDTIME cap 02/22/18 04/25/20 History Respironics Dreamstation CPAP #1 ea 06/20/18 04/24/20 History clobetasol 0.05 % topical cream 1 applictn TOP BID PRN gram 12/19/18 04/24/20 History finasteride 5 mg tablet 5 mg PO BEDTIME tab 12/19/18 04/24/20 History clindamycin phosphate 1 % topical See Rx Instructions TOP BID PRN 04/30/19 04/24/20 History solution ipratropium bromide 0.03 % nasal 2 spray NASAL BID 04/30/19 04/25/20 History spray tramadol 50 mg tablet 50 mg PO BID PRN #20 tab 09/30/19 04/24/20 Rx guaifenesin [Guaifenesin LA] 600 mg PO BID 04/24/20 04/24/20 History Allergies Allergy/AdvReac Type Severity Reaction Status Date / Time adhesive tape Allergy Intermediate skin Verified 04/24/20 18:50 callus like alligator skin. latex [LATEX] Allergy Intermediate SKIN Verified 04/24/20 18:50 CALLUS LIKE ALLIGATOR SKIN Review of Systems Review of Systems ROS: Yes All systems reviewed with the patient and are negative except as otherwise documented Exam Vital Signs (past 8 hours): - 04/25/20 01:55 04/25/20 08:07 Temperature 97.7 F Pulse Rate 59 L 60 Respiratory Rate 18 16 Blood Pressure 144/86 H Pulse Oximetry 95 95 Oxygen Delivery Method Room Air Oxygen Flow Rate 0 Narrative Exam Narrative: General examination is alert oriented male no acute distress HEENT exam normocephalic atraumatic respiratory exam lungs clear to auscultation CV exam regular rate and rhythm abdominal exam soft, nontender : Patton in place musculoskeletal exam: full range of motion bilateral upper extremities nontender to palpation. No deformity left lower extremity: Shortened externally rotated left leg. Tenderness around the hip. No erythema no lesions. No pain with palpation around the knee. Demonstrates 5/5 dorsiflexion plantar flexion. Sensation intact to light touch sural saphenous deep peroneal and superficial peroneal. Palpable dorsalis pedis pulse. Calf is soft right lower extremity normal alignment range of motion. Nontender to palpation sensation grossly intact. No deformity Objective Labs Result Diagrams: 04/25/20 05:05 04/25/20 05:05 Labs: Laboratory Results - last 24 hr 04/24/20 04/24/20 04/24/20 19:06 19:10 19:10 WBC 6.6 RBC 4.41 L Hgb 13.8 Hct 42.0 MCV 95.2 MCH 31.2 MCHC 32.7 RDW 13.1 Plt Count 176 Neut % (Auto) 70.6 Lymph % (Auto) 21.5 L [place] % (Auto) 6.6 Eos % (Auto) 0.8 L Baso % (Auto) 0.5 Neut # (Auto) 4700 Lymph # (Auto) 1400 [place] # (Auto) 400 Eos # (Auto) 100 Baso # (Auto) 0 PT INR Sodium 135 L Potassium 3.6 Chloride 106 Carbon Dioxide 28 BUN 17 Creatinine 1.16 Estimated GFR > 60.0 BUN/Creatinine Ratio 14.7 Glucose 127 H Calcium 8.5 Magnesium Total Bilirubin AST ALT Alkaline Phosphatase Total Protein Albumin Globulin Albumin/Globulin Ratio Urine Color Urine Appearance Urine pH Ur Specific [place] Urine Protein Urine Glucose (UA) Urine Ketones Urine Occult Blood Urine Nitrate Urine Bilirubin Urine Urobilinogen Ur Leukocyte Esterase Urine RBC Urine WBC Calcium Oxalate Crystal Urine Bacteria Ur Culture Indicated? SARS-CoV-2 (PCR) Negative 04/24/20 04/25/20 04/25/20 19:10 04:10 05:05 WBC 8.4 RBC 4.20 L Hgb 13.0 L Hct 39.9 L MCV 95.1 MCH 31.0 MCHC 32.6 RDW 12.8 Plt Count 171 Neut % (Auto) 74.8 Lymph % (Auto) 13.9 L [place] % (Auto) 10.0 Eos % (Auto) 1.0 L Baso % (Auto) 0.3 Neut # (Auto) 6300 Lymph # (Auto) 1200 [place] # (Auto) 800 Eos # (Auto) 100 Baso # (Auto) 0 PT 13.2 H INR 1.2 Sodium Potassium Chloride Carbon Dioxide BUN Creatinine Estimated GFR BUN/Creatinine Ratio Glucose Calcium Magnesium Total Bilirubin AST ALT Alkaline Phosphatase Total Protein Albumin Globulin Albumin/Globulin Ratio Urine Color Yellow Urine Appearance Clear Urine pH 6.5 Ur Specific [place] 1.020 Urine Protein Trace H Urine Glucose (UA) Negative Urine Ketones Trace H Urine Occult Blood 3+ H Urine Nitrate Negative Urine Bilirubin Negative Urine Urobilinogen 0.2 Ur Leukocyte Esterase Negative Urine RBC 30-100/hpf H Urine WBC 0-1/hpf Calcium Oxalate Crystal Occasional H Urine Bacteria None seen Ur Culture Indicated? Cult not indicated SARS-CoV-2 (PCR) 04/25/20 05:05 WBC RBC Hgb Hct MCV MCH MCHC RDW Plt Count Neut % (Auto) Lymph % (Auto) [place] % (Auto) Eos % (Auto) Baso % (Auto) Neut # (Auto) Lymph # (Auto) [place] # (Auto) Eos # (Auto) Baso # (Auto) PT INR Sodium 138 Potassium 4.1 Chloride 108 H Carbon Dioxide 29 BUN 17 Creatinine 1.03 Estimated GFR > 60.0 BUN/Creatinine Ratio 16.5 Glucose 104 Calcium 8.4 Magnesium 1.9 Total Bilirubin 0.6 AST 24 ALT 16 Alkaline Phosphatase 59 Total Protein 5.6 L Albumin 3.3 L Globulin 2.3 Albumin/Globulin Ratio 1.4 Urine Color Urine Appearance Urine pH Ur Specific [place] Urine Protein Urine Glucose (UA) Urine Ketones Urine Occult Blood Urine Nitrate Urine Bilirubin Urine Urobilinogen Ur Leukocyte Esterase Urine RBC Urine WBC Calcium Oxalate Crystal Urine Bacteria Ur Culture Indicated? SARS-CoV-2 (PCR) Assessment & Plan Assessment and plan (1) Closed hip fracture: Problem details: displaced left femoral neck fracture after ground level fall. Patient has a displaced intracapsular hip fracture. Discussed treatment for this is arthroplasty. He has no significant arthritis on x-ray and has had no hip complaints prior to the injury. He has been indicated for a hemiarthroplasty. The risks and benefits of the procedure have been discussed with the patient even opportunity to ask questions. The risks of surgery include but are not limited to infection, Fracture, dislocation, persistence of pain, damage to nerves and blood vessels, posttraumatic arthritis, DVT, PE, cardiopulmonary complications , stroke, paralysis and . The patient expressed a thorough understanding of the risks and benefits of surgery and has elected to proceed. Consent was signed. he has no history of blood clots or clotting disorders. A discussed anticoagulation after surgery for a healthy ambulatory patients can be aspirin. For greater risk factors Lovenox injections or Xarelto our options. Will do Lovenox postop starting POD 1 while in the hospital and plan discharge on aspirin 81 mg b.i.d x 4 weeks. Qualifiers: Encounter type: initial encounter Laterality: left Qualified Code(s): S72.002A - Fracture of unspecified part of neck of left femur, initial encounter for closed fracture Status: Acute Quality VTE Deep Vein Thrombosis/Pulmonary Embolism Present on Admission: No
[2020-04-25] MEDS: SODIUM CHLORIDE 0.9% 1,000 ML 100 ML IV (08:30)
--- NOTE | 2020-04-25 09:04 | PT-IP ANOTE ---
pt with L hip fracture and will undergo surgery a~ 9 am today. will d/c PT eval order and will f/u when new orders receive post-op.
[2020-04-25] MEDS: LACTATED RINGERS 1,000 ML 42 ML IV ×2 (09:12→11:13)
--- NOTE | 2020-04-25 09:15 | DI.RAD.S_ITS ---
PROCEDURE: XR HIP W PEL INDICATIONS: implant TECHNIQUE: One view of the pelvis was acquired. COMPARISON: [facility], CR, XR PELVIS 1-2V, 04/25/2020, 9:29. [facility], CR, XR HIP W PEL IF DONE LT 2V, 04/24/2020, 18:44. FINDINGS: Bones: Left hip arthroplasty hardware is seen. No significant postoperative abnormality is seen. Moderate degenerative change is seen of the contralateral right hip. Soft tissues: Overlying soft tissue postoperative changes are seen. IMPRESSION: Normal postoperative examination. Dictated by: Raheem Rosenbaum M.D. on 04/25/2020 at 11:48 Approved by: Raheem Rosenbaum M.D. on 04/25/2020 at 11:49
--- NOTE | 2020-04-25 09:19 | P.OP_ITS ---
Operative Date/Time/Diagnoses Date of procedure: 04/25/20 Time of procedure: 10:00 Pre-op diagnosis: left displaced femoral neck fracture Post-op diagnosis: same Procedure & Clinicians Procedure: 1. hemiarthroplasty left femoral neck fracture CPT code 27190 Same procedure as scheduled: Yes Indications: The patient is a 79-year-old male that had a fall from ground level while he tripped over a cement curb getting into a tractor. He sustained a displaced left femoral neck fracture. No LOC, Was unable to ambulate. Denies any previous hip symptoms. He has been indicated for a cemented left hemiarthroplasty for treatment of his left femoral neck fracture to allow early mobilization and stability. The risks benefits and alternatives to the procedure were discussed with the patient detail. He has elected to proceed. the risk of surgery include but are not limited to infection, persistence of pain, hardware complication, damage to nerves and blood vessels, posttraumatic arthritis, dislocation, DVT, PE, cardiopulmonary complications, stroke paralysis and . The patient expressed their understanding the risks and benefits of surgery and has elected to proceed. Consent was signed. Dr. Calitxo was utilized as a surgical dental assistant and was integral to the prepping, positioning, exposure retraction and the manipulation for this procedure. Surgeon: Princess Aleman Ar Manager: Antonette Calixto Anesthesia Type: Spinal and Local Operative Notes Findings: Displaced left femoral neck fracture Moderately comminuted neck Closure Type: primary Specimen(s): none sent Prosthetic devices, grafts, tissues, transplants, or devices: Calixto and Nephew Synergy cemented stem component size 14. Calixto and Nephew tandem unipolar head 51 mm cobalt chromium +4 neck modular head sleeve and 11 mm distal post centralizer and a medium size cement restrictor Applied: implant(s) ( Calixto and nephew system as mentioned above) Estimated Blood Loss (mL): 300 Blood products transfused: none Tourniquet time (min): 0 Procedure in detail: patient was seen in the preoperative area the site of surgery was marked informed consent confirmed. Patient was brought back to the operating room by the anesthesia team. Spinal anesthetic was placed by the anesthesia team. Patient was then positioned supine on the operative table general anesthetic was administered. Patient was moved into the lateral position. The hip apprentice technician positioner pads were placed. A well-padded axillary roll was placed and the arms were appropriately position. The affected lower extremities prepped and draped from the ankle to the iliac crest with a ChloraPrep in the standard fashion and sterile drapes were placed. A formal time-out procedure was performed confirming the patient's side and site of surgery presence of informed consent administration of appropriate antibiotics. 1 g of TXA was administered prior to incision and a final 1 g of TXA was administered at the time of closing. The hip was approached through a standard posterior approach. Dissection was carried down through skin subcutaneous tissues sharply through the skin and then with the Bovie through the magana bcutaneous tissues. The fascia cecy was exposed and opened. The fascia was opened using a deep knife and the gluteus josé luis was spread with finger retraction. A Charnley retractor was placed. The inflamed bursa was resected. The piriformis was then identified. A guilty was used at the proximal part of the incision for additional exposure. The piriformis and short external rotators were released off of the femur and then tagged with a 2. FiberWire. These were then retracted posteriorly to protect the sciatic nerve. The femur was flexed and internally rotated to present the capsule. The capsule was then also released off the femur and tagged with a 2. FiberWire. This was also retracted posteriorly. next the femoral neck was identified. Additional tissue was released off of the inferior neck and the lesser trochanter was palpated. Loose comminuted neck fragments were removed. The neck was marked and a clean-up cut was completed. These fragments were removed then the femoral head was exposed. A corkscrew was used to remove the femoral head from the acetabulum. This was measured to fit a a 51 Or 52 size head. A 51 was selected. Next the femur was presented. A hip skid type was tractor was placed under the neck to elevate the femur. The canal was opened with a box cutting osteotome. This was followed by the canal Finders and then the lateralizing Reamer. Then the tapered reamers were used up to a size of 14 for full turns and up to size 15 did Return fully so a 14 size was preliminarily selected. Next the broaching was started with a size 9 and broached sequentially up to a size 14. trial components were placed with a 0 neck. The patient was stable in the position of sleep and squatting continued through range of motion with 70? of internal rotation without dislocation. An intraop AP pelvis x-ray was obtained to assess component position. Stem was in good position but the leg was about 2 mm short. the femoral now was prepared. The distal medium cement restrictor was placed and measured about 2 cm distal to the planned implant. This level was marked on the face burler. The bone was meticulously cleaned with the pulse lavage. The canal was then packed with epinephrine soaked vaginal gauze. Two packs of cement were mixed and I carefully finger pressurized into the femoral canal. The femoral component with the 11 size centralizer was placed. This was held in place until the cement hardened. A repeat trial reduction was back working with a 51 head and 0 neck. It was felt this was a little short of therefore the trial was done with a +4 neck. This provided excellent length and stability and was not too tight in extension. The final head and neck were then selected and placed this was a 51 mm head and a +4 neck. Final stability check and range of motion was completed with as stability in the position of sleeps and squatting and greater than 70? of internal rotation without dislocation. Wound was irrigated the capsule flap was repaired And reinforce through bone tunnel. The external rotators and capsular sutures were brought through the greater trochanter. Drill holes were made with a 2.5 drill in the Moreno suture Passer was used. These were tied with the leg in abduction. The wound was irrigated again. Exparel And Marcaine mixture was injected both deep and in the fascia. Fascia cecy was closed with 0 Vicryl. Subcutaneous tissues were closed with 2-0 Vicryl. A 4-0 Monocryl suture was used subcutaneously and the skin was closed with maurice. Due to the patient's adhesive reactions the incision was covered with Xeroform gauze and paper tape. The drapes were removed. A regular pillow was placed between the knees a for protection. Patient was transferred to the bed and taken to recovery room in good condition. There no immediate complications from this procedure. All counts were correct. Postoperative AP pelvis x-ray was obtained in the PACU showed appropriate alignment of the cemented hip hemiarthroplasty with no evidence of fracture. Complications: none Post-operative Condition: stable Disposition: PACU Plan for aftercare: weightbear as tolerated left lower extremity. Will work with physical therapy. Postoperative posterior hip precautions. regular pillow between the knees while in bed. Lovenox starting postop day 1 for DVT prophylaxis while in the hospital. Discharge on 81 mg of aspirin b.i.d.
[2020-04-25] MEDS: CEFAZOLIN 2 GM/100 ML FROZ.PIGGY IV ×2 (09:28→17:56)
[2020-04-25] MEDS: TRANEXAMIC ACID 1,000 MG VIAL 1000 MG INJ ×2 (10:00→12:03)
--- NOTE | 2020-04-25 10:14 | SUR.OPER ---
Lateral on padded OR bed. Gel axillary roll. Arms secured on padded armboard with pillow supporting top arm. Padded hip positioner braces x4 - anterior and posterior chest and pelvis. Additional gel pad used anterior pelvis. Gel pad under bottom leg from knee to foot and secured with tape over sheet.
[2020-04-25] MEDS: BUPIVACAINE LIPOSOME 266 MG/20 ML VIAL INJ (10:18)
[2020-04-25] MEDS: SODIUM CHLORIDE IRRIG SOLUTION 250 ML, EPINEPHrine 1 MG IRR (10:18)
--- NOTE | 2020-04-25 10:32 | CM.DANOTE ---
DCP: Case received, EMR reviewed. , Nakia, was in patient's room, since patient was taken down to surgery. Introduced self and role. Was able to obtain information from patient's regarding patient's baseline activity status prior to hospitalization. DCP assessment completed with information currently available. Patient is a 79 year old male who admitted yesterday evening to the care of the hospitalist team. PCP: Dr. Infante. Payer: confirmed: [employer]. Patient came to the hospital via ambulance secondary to a fall that occurred outside. Patient had been attempting to get out of his tractor, but had tripped over some concrete. He had complained of left hip pain, and ended up with a left femoral displaced neck fracture. Patient is currently in surgery. Patient's was in the room, and confirmed that he is independent at baseline. Placed name of this oil field caser on white board for reference. Explained to this oil field caser's role, using example of if he needed any [facility] rehab, versus home health P.T. is aware that this will depend upon how patient does after surgery, and how he performs with P.T. P: DCP to continue to follow. Will continue to be available for any resources needed. Will see how patient does after surgery, and with P.T. Fauzia Carpenter RN/Telephone Directory Deliverer
[2020-04-25] MEDS: BUPIVACAINE 0.25% W/ EPI (PF) 10 ML VIAL 30 ML INJ (11:42)
--- NOTE | 2020-04-25 13:08 | P.PN_ITS ---
Subjective Subjective Date Patient Seen: 04/25/20 Time Patient Seen: 13:08 Interval history: postop day 0 left hip hemiarthroplasty patient seen in PACU. Demonstrates active dorsiflexion plantar flexion bilaterally. Pillow in place for abduction. Pain controlled. Patient alert Waking up from anesthesia. Placed on BiPAP. history of EVETTE. Has CPAP. plan: when stable transfer to floor. Postop plan: weightbear as tolerated keep incision clean dry and intact. May change paper tape and gauze dressing as needed use regular pillow in between knees while in bed practice posterior hip precautions for 6 weeks postop will have Lovenox for DVT prophylaxis while in the hospital. Discharge on 81 mg of aspirin b.i.d. for DVT prophylaxis x 4 weeks. recommend calcium and vitamin-D. 2000 units of vitamin-D daily +1200 mg of calcium outpatient DEXA scan in the next 3 months for bone density screening Tylenol and oxycodone for ibuprofen for pain may wean back down to home tramadol as tolerated HEMA Patton when able, by protocol will work with PT. Anticipate likely discharge home tomorrow mobilized well with therapy. Exam Vital Signs (past 8 hours): - 04/25/20 08:00 04/25/20 08:07 04/25/20 08:56 Temperature 97.8 F Pulse Rate 61 60 65 Respiratory Rate 16 16 14 Blood Pressure 145/93 H 136/78 Pulse Oximetry 92 95 91 Oxygen Delivery Method Room Air Oxygen Flow Rate 0 Objective Labs Result Diagrams: 04/25/20 05:05 04/25/20 05:05 Labs: Laboratory Results - last 24 hr 04/24/20 04/24/20 04/24/20 19:06 19:10 19:10 WBC 6.6 RBC 4.41 L Hgb 13.8 Hct 42.0 MCV 95.2 MCH 31.2 MCHC 32.7 RDW 13.1 Plt Count 176 Neut % (Auto) 70.6 Lymph % (Auto) 21.5 L [place] % (Auto) 6.6 Eos % (Auto) 0.8 L Baso % (Auto) 0.5 Neut # (Auto) 4700 Lymph # (Auto) 1400 [place] # (Auto) 400 Eos # (Auto) 100 Baso # (Auto) 0 PT INR Sodium 135 L Potassium 3.6 Chloride 106 Carbon Dioxide 28 BUN 17 Creatinine 1.16 Estimated GFR > 60.0 BUN/Creatinine Ratio 14.7 Glucose 127 H Calcium 8.5 Magnesium Total Bilirubin AST ALT Alkaline Phosphatase Total Protein Albumin Globulin Albumin/Globulin Ratio Urine Color Urine Appearance Urine pH Ur Specific [place] Urine Protein Urine Glucose (UA) Urine Ketones Urine Occult Blood Urine Nitrate Urine Bilirubin Urine Urobilinogen Ur Leukocyte Esterase Urine RBC Urine WBC Calcium Oxalate Crystal Urine Bacteria Ur Culture Indicated? SARS-CoV-2 (PCR) Negative 04/24/20 04/25/20 04/25/20 19:10 04:10 05:05 WBC 8.4 RBC 4.20 L Hgb 13.0 L Hct 39.9 L MCV 95.1 MCH 31.0 MCHC 32.6 RDW 12.8 Plt Count 171 Neut % (Auto) 74.8 Lymph % (Auto) 13.9 L [place] % (Auto) 10.0 Eos % (Auto) 1.0 L Baso % (Auto) 0.3 Neut # (Auto) 6300 Lymph # (Auto) 1200 [place] # (Auto) 800 Eos # (Auto) 100 Baso # (Auto) 0 PT 13.2 H INR 1.2 Sodium Potassium Chloride Carbon Dioxide BUN Creatinine Estimated GFR BUN/Creatinine Ratio Glucose Calcium Magnesium Total Bilirubin AST ALT Alkaline Phosphatase Total Protein Albumin Globulin Albumin/Globulin Ratio Urine Color Yellow Urine Appearance Clear Urine pH 6.5 Ur Specific [place] 1.020 Urine Protein Trace H Urine Glucose (UA) Negative Urine Ketones Trace H Urine Occult Blood 3+ H Urine Nitrate Negative Urine Bilirubin Negative Urine Urobilinogen 0.2 Ur Leukocyte Esterase Negative Urine RBC 30-100/hpf H Urine WBC 0-1/hpf Calcium Oxalate Crystal Occasional H Urine Bacteria None seen Ur Culture Indicated? Cult not indicated SARS-CoV-2 (PCR) 04/25/20 05:05 WBC RBC Hgb Hct MCV MCH MCHC RDW Plt Count Neut % (Auto) Lymph % (Auto) [place] % (Auto) Eos % (Auto) Baso % (Auto) Neut # (Auto) Lymph # (Auto) [place] # (Auto) Eos # (Auto) Baso # (Auto) PT INR Sodium 138 Potassium 4.1 Chloride 108 H Carbon Dioxide 29 BUN 17 Creatinine 1.03 Estimated GFR > 60.0 BUN/Creatinine Ratio 16.5 Glucose 104 Calcium 8.4 Magnesium 1.9 Total Bilirubin 0.6 AST 24 ALT 16 Alkaline Phosphatase 59 Total Protein 5.6 L Albumin 3.3 L Globulin 2.3 Albumin/Globulin Ratio 1.4 Urine Color Urine Appearance Urine pH Ur Specific [place] Urine Protein Urine Glucose (UA) Urine Ketones Urine Occult Blood Urine Nitrate Urine Bilirubin Urine Urobilinogen Ur Leukocyte Esterase Urine RBC Urine WBC Calcium Oxalate Crystal Urine Bacteria Ur Culture Indicated? SARS-CoV-2 (PCR) [facility] Medical History (Updated 04/25/20 @ 08:32 by Princess Aleman MD) Allergies Chicken pox Chronic back pain Chronic cough Essential (primary) hypertension Excessive daytime sleepiness Hamstring strain History of basal cell carcinoma History of hypertension Measles Mumps Obstructive sleep apnea of adult Screen for colon cancer Sinusitis Surgical History Anesthesia Broken wrist (~1989) History of cataract removal with insertion of prosthetic lens History of laminectomy (~1986) History of nephrolithotomy with removal of calculi History of removal of cyst (~2004) History of testicular surgery History of tonsillectomy History of vasectomy Skin lesion (~2007) Status post hernia repair Family History Father Diabetes mellitus Heart disease Stroke Prostate cancer Mother Cancer Nervous breakdown Sister Cancer Grandfather Heart disease Grandmother Heart disease Grandfather No problems noted. Social History marital status: details: eneida Yee, lives in [place] household members: spouse lives independently: Yes caregiver/support person: No Smoking Status: Never smoker second hand exposure: No alcohol intake: never substance use type: does not use Assessment & Plan Post-op Postoperative Procedures: Procedures Operation Date: 04/25/20 09:00 Actual Procedures Side Surgeon p Hip Hemiarthroplasty Left Princess Aleman MD Quality VTE Deep Vein Thrombosis/Pulmonary Embolism Present on Admission: No
--- NOTE | 2020-04-25 13:41 | SUR.PHASEI ---
RT called as pt was having difficulty maintaining saturation. Several attempts were made to reach a saturation level into the 90s with patients own CPAP device but we were unsuccessful. At 1303, Patient was placed on BIPAP with 100% oxygen provided just to get his sats to sustain between 94-97%. Charge nurse was notified and patient was changed from AC to ICU status due to BIPAP. All other vital signs were stable BP was noted to be approx 30mmhg below baseline. RT, Charge Nurse and ICU nurse assuming care were called to assist in transport of the patient to the unit. Pt was noted to be in stable condition upon transport and maintaining saturations within parameters while on the BIPAP system.
[2020-04-25] MEDS: LACTATED RINGERS 1,000 ML 125 ML IV ×2 (14:17→22:11)
--- NOTE | 2020-04-25 14:22 | PC.NURSE ---
Addendum entered by Tari Kirkpatrick R.N. 04/25/20 14:46: Patient awake and alert. SpO2 95-96%. Bipap removed (RT notified) and pt placed on 3L NC, SpO2 92-93%. Instructed to deep breathe. Call light within reach, using appropriately to make needs known. Original Note: Postop Note Received pt from [employer], transported to room 228 with RT Joyce and supercharger mechanic Kiersten while on bipap. SpO2 100% on 100% FiO2, RT titrated FiO2 down to 30%, bipap settings 14/5, RR 16. SpO2 93-95% at this time. Awakens easily to voice and is able to answer questions. Able to move feet/wiggle toes, palpable pulses, denies any numbness to BLEs. Dressing to left hip is C/D/I. SB in the 50s with a 1st deg ABV. BP stable with MAP > 65. Denies pain. Patton catheter in place and draining clear yellow urine. Belongings brought from room 218. at bedside.
--- NOTE | 2020-04-25 15:18 | PM.PN.1 ---
Subjective Subjective Date Patient Seen: 04/25/20 Interval history: The patient is a 79-year-old male who is status post left hip hemiarthroplasty. Postoperatively the patient remained hypoxic despite CPAP. He was ultimately placed on BiPAP with an FiO2 of 100%. He is more awake and alert, patient denies any shortness of breath, he denies any pain at this time. Exam Vital Signs (past 8 hours): - 04/25/20 08:00 04/25/20 08:07 04/25/20 08:56 Temperature 97.8 F Pulse Rate 61 60 65 Respiratory Rate 16 16 14 Blood Pressure 145/93 H 136/78 Pulse Oximetry 99 95 91 04/25/20 12:28 04/25/20 12:33 04/25/20 12:38 Temperature 97.3 F L Pulse Rate 72 61 61 Respiratory Rate 19 14 16 Blood Pressure 108/55 L 110/49 L 100/49 L Pulse Oximetry 90 L 88 L 89 L 04/25/20 12:43 04/25/20 12:48 04/25/20 12:54 Temperature Pulse Rate 60 58 L 61 Respiratory Rate 11 L 11 L 15 Blood Pressure 93/50 L 90/48 L 87/57 L Pulse Oximetry 91 79 L 79 L 04/25/20 12:58 04/25/20 13:03 04/25/20 13:18 Temperature Pulse Rate 57 L 57 L 55 L Respiratory Rate 14 13 16 Blood Pressure 93/47 L 91/46 L 99/53 L Pulse Oximetry 86 L 86 L 97 04/25/20 13:33 04/25/20 13:45 04/25/20 14:15 Temperature 97.1 F L 96.7 F L Pulse Rate 57 L 59 L 53 L Respiratory Rate 16 18 17 Blood Pressure 96/51 L 106/58 L 95/50 L Pulse Oximetry 94 100 92 04/25/20 14:45 04/25/20 15:13 Temperature 97.5 F L Pulse Rate 56 L 56 L Respiratory Rate 18 16 Blood Pressure 99/63 Pulse Oximetry 93 94 Fraction of Inspired Oxygen 30 Oxygen Delivery Method Nasal Cannula Oxygen Flow Rate 3 Narrative Exam Narrative: Elderly male lying in bed with CPAP in place Lungs: Decreased breath sounds but clear Cardiac exam: Regular rate rhythm normal S1-S2 Abdomen: Soft and nontender Extremities: No edema appreciated Objective Labs Result Diagrams: 04/25/20 05:05 04/25/20 05:05 Labs: Laboratory Results - last 24 hr 04/24/20 04/24/20 04/24/20 19:06 19:10 19:10 WBC 6.6 RBC 4.41 L Hgb 13.8 Hct 42.0 MCV 95.2 MCH 31.2 MCHC 32.7 RDW 13.1 Plt Count 176 Neut % (Auto) 70.6 Lymph % (Auto) 21.5 L [place] % (Auto) 6.6 Eos % (Auto) 0.8 L Baso % (Auto) 0.5 Neut # (Auto) 4700 Lymph # (Auto) 1400 [place] # (Auto) 400 Eos # (Auto) 100 Baso # (Auto) 0 PT INR Sodium 135 L Potassium 3.6 Chloride 106 Carbon Dioxide 28 BUN 17 Creatinine 1.16 Estimated GFR > 60.0 BUN/Creatinine Ratio 14.7 Glucose 127 H Calcium 8.5 Magnesium Total Bilirubin AST ALT Alkaline Phosphatase Total Protein Albumin Globulin Albumin/Globulin Ratio Urine Color Urine Appearance Urine pH Ur Specific [place] Urine Protein Urine Glucose (UA) Urine Ketones Urine Occult Blood Urine Nitrate Urine Bilirubin Urine Urobilinogen Ur Leukocyte Esterase Urine RBC Urine WBC Calcium Oxalate Crystal Urine Bacteria Ur Culture Indicated? SARS-CoV-2 (PCR) Negative 04/24/20 04/25/20 04/25/20 19:10 04:10 05:05 WBC 8.4 RBC 4.20 L Hgb 13.0 L Hct 39.9 L MCV 95.1 MCH 31.0 MCHC 32.6 RDW 12.8 Plt Count 171 Neut % (Auto) 74.8 Lymph % (Auto) 13.9 L [place] % (Auto) 10.0 Eos % (Auto) 1.0 L Baso % (Auto) 0.3 Neut # (Auto) 6300 Lymph # (Auto) 1200 [place] # (Auto) 800 Eos # (Auto) 100 Baso # (Auto) 0 PT 13.2 H INR 1.2 Sodium Potassium Chloride Carbon Dioxide BUN Creatinine Estimated GFR BUN/Creatinine Ratio Glucose Calcium Magnesium Total Bilirubin AST ALT Alkaline Phosphatase Total Protein Albumin Globulin Albumin/Globulin Ratio Urine Color Yellow Urine Appearance Clear Urine pH 6.5 Ur Specific [place] 1.020 Urine Protein Trace H Urine Glucose (UA) Negative Urine Ketones Trace H Urine Occult Blood 3+ H Urine Nitrate Negative Urine Bilirubin Negative Urine Urobilinogen 0.2 Ur Leukocyte Esterase Negative Urine RBC 30-100/hpf H Urine WBC 0-1/hpf Calcium Oxalate Crystal Occasional H Urine Bacteria None seen Ur Culture Indicated? Cult not indicated SARS-CoV-2 (PCR) 04/25/20 05:05 WBC RBC Hgb Hct MCV MCH MCHC RDW Plt Count Neut % (Auto) Lymph % (Auto) [place] % (Auto) Eos % (Auto) Baso % (Auto) Neut # (Auto) Lymph # (Auto) [place] # (Auto) Eos # (Auto) Baso # (Auto) PT INR Sodium 138 Potassium 4.1 Chloride 108 H Carbon Dioxide 29 BUN 17 Creatinine 1.03 Estimated GFR > 60.0 BUN/Creatinine Ratio 16.5 Glucose 104 Calcium 8.4 Magnesium 1.9 Total Bilirubin 0.6 AST 24 ALT 16 Alkaline Phosphatase 59 Total Protein 5.6 L Albumin 3.3 L Globulin 2.3 Albumin/Globulin Ratio 1.4 Urine Color Urine Appearance Urine pH Ur Specific [place] Urine Protein Urine Glucose (UA) Urine Ketones Urine Occult Blood Urine Nitrate Urine Bilirubin Urine Urobilinogen Ur Leukocyte Esterase Urine RBC Urine WBC Calcium Oxalate Crystal Urine Bacteria Ur Culture Indicated? SARS-CoV-2 (PCR) [facility] Medical History (Updated 04/25/20 @ 08:32 by Princess Aleman MD) Allergies Chicken pox Chronic back pain Chronic cough Essential (primary) hypertension Excessive daytime sleepiness Hamstring strain History of basal cell carcinoma History of hypertension Measles Mumps Obstructive sleep apnea of adult Screen for colon cancer Sinusitis Surgical History Anesthesia Broken wrist (~1989) History of cataract removal with insertion of prosthetic lens History of laminectomy (~1986) History of nephrolithotomy with removal of calculi History of removal of cyst (~2004) History of testicular surgery History of tonsillectomy History of vasectomy Skin lesion (~2007) Status post hernia repair Family History Father Diabetes mellitus Heart disease Stroke Prostate cancer Mother Cancer Nervous breakdown Sister Cancer Grandfather Heart disease Grandmother Heart disease Grandfather No problems noted. Social History marital status: details: eneida Timburtsunil, lives in [place] household members: spouse lives independently: Yes caregiver/support person: No Smoking Status: Never smoker second hand exposure: No alcohol intake: never substance use type: does not use Assessment & Plan Assessment & Plan narrative: 1. Acute hypoxic respiratory failure -patient developed significant hypoxia postoperatively -he required BiPAP at FiO2 100% -he has since been tapered to 3 L nasal prong -he will resume CPAP tonight 2.. Left moderately displaced subcapital femoral neck fracture secondary to ground level fall, acute, stable, present on admission -patient is status post left hip hemiarthroplasty -DVT prophylaxis per Orthopedics -initiate PT OT tomorrow -pain control as written 2. Elevated blood pressure, likely secondary to hip fracture and sleep apnea, acute, present on admission -ordered 1 time does metoprolol 25 mg now. -blood pressure improved will continue to follow 3. Sleep apnea, acute on chronic, present on admission -taper BiPAP all -resume CPAP 4. Abdominal mass, supra umbilical, nontender, acute present on it admit -suspect umbilical/abdominal hernia, patient states he has never observed this prior to my exam. Ordered abdominal ultrasound-no evidence of abdominal hernia noted 5. BPH, chronic, stability unknown, present on admission -continue patient's tamsulosin and Finasteride Quality VTE Deep Vein Thrombosis/Pulmonary Embolism Present on Admission: No
[2020-04-25] MEDS: ACETAMINOPHEN 325 MG TABLET 650 MG PO ×2 (15:45→20:17)
--- NOTE | 2020-04-25 19:11 | PC.NURSE ---
Pt up to the BSC with assistance, tolerated ambulation well. Denies pain at this time.
[2020-04-25] MEDS: DOCUSATE 100 MG CAPSULE PO (20:17)
[2020-04-25] MEDS: TAMSULOSIN 0.4 MG CAPSULE 0.8 MG PO (20:18)
[2020-04-26] VITALS (7 sets, daily range): BP systolic 147–169; BP diastolic 67–77; PULSE 52–66; RESP 16–21; TEMP 35.9–36.7; O2SAT 94–98
[2020-04-26] MEDS: CEFAZOLIN 2 GM/100 ML FROZ.PIGGY IV (02:06)
[2020-04-26 05:23] LABS: Hematocrit 34.2 % (41-53)
[2020-04-26] MEDS: PANTOPRAZOLE 20 MG TABLET PO (06:04)
--- NOTE | 2020-04-26 06:33 | PC.NURSE ---
0600- Trialed patient off 02. Patient desaturates to 87% when on room air. Patient placed back on 3l cannula. Saturation 95%. Will monitor.
[2020-04-26] MEDS: ENOXAPARIN 40 MG/0.4 ML SYRINGE SUBCUT (08:20)
[2020-04-26] MEDS: DOCUSATE 100 MG CAPSULE PO (08:20)
[2020-04-26] MEDS: ACETAMINOPHEN 325 MG TABLET 650 MG PO ×2 (08:20→13:29)
--- NOTE | 2020-04-26 08:40 | PM.PNPO.1 ---
Subjective Subjective Date Patient Seen: 04/26/20 Time Patient Seen: 08:46 Interval history: David is a 79-year-old male that had a ground level fall after tripping over [place] curb and sustained a displaced left femoral neck fracture. He underwent a cemented left jose martin hip arthroplasty on 04/25/2020. after surgery had hypoxia and was supported on BiPAP. He does have obstructive sleep apnea at baseline uses CPAP at home. he was admitted to the ICU postop due to a BiPAP requirement. He has since been weaned off of that and is on 2 L of nasal cannula satting well this morning. Postoperative labs are stable. Has some mild pain in the hip otherwise no complaints. Exam Vital Signs (past 8 hours): - 04/26/20 01:00 04/26/20 04:40 04/26/20 04:53 Temperature 96.6 F L Pulse Rate 54 L 52 L Respiratory Rate 21 16 Blood Pressure 147/67 H 147/67 H Pulse Oximetry 95 98 97 04/26/20 05:00 04/26/20 08:35 Temperature Pulse Rate 59 L Respiratory Rate 16 Blood Pressure Pulse Oximetry 96 96 Fraction of Inspired Oxygen 30 Oxygen Delivery Method Nasal Cannula Oxygen Flow Rate 2 Narrative Exam Narrative: general exam: alert oriented male no acute distress. Eating breakfast. Answers questions appropriately HEENT exam normocephalic atraumatic. Respiratory exam: breathing normally no increased effort. On nasal cannula 2 L CV exam slightly bradycardic in the 50s and regular rhythm musculoskeletal exam: Left hip dressing clean dry and intact, mild pain thigh is soft. Demonstrates 5/5 dorsiflexion plantar flexion. Normal rotation length and alignment. Sensation intact to light touch. Brisk capillary refill Objective Labs Result Diagrams: 04/26/20 04:30 04/25/20 05:05 Labs: Laboratory Results - last 24 hr 04/25/20 04/26/20 13:55 04:30 Hgb 11.0 L Hct 34.2 L Nasal Screen MRSA (PCR) Negative for mrsa PFSH Medical History Allergies Chicken pox Chronic back pain Chronic cough Essential (primary) hypertension Excessive daytime sleepiness Hamstring strain History of basal cell carcinoma History of hypertension Measles Mumps Obstructive sleep apnea of adult Screen for colon cancer Sinusitis Surgical History Anesthesia Broken wrist (~1989) History of cataract removal with insertion of prosthetic lens History of laminectomy (~1986) History of nephrolithotomy with removal of calculi History of removal of cyst (~2004) History of testicular surgery History of tonsillectomy History of vasectomy Skin lesion (~2007) Status post hernia repair Family History Father Diabetes mellitus Heart disease Stroke Prostate cancer Mother Cancer Nervous breakdown Sister Cancer Grandfather Heart disease Grandmother Heart disease Grandfather No problems noted. Social History marital status: details: eneida Yee, lives in [place] household members: spouse lives independently: Yes caregiver/support person: No Smoking Status: Never smoker second hand exposure: No alcohol intake: never substance use type: does not use Assessment & Plan Post-op Postoperative Procedures: Procedures Operation Date: 04/25/20 09:00 Actual Procedures Side Surgeon p Hip Hemiarthroplasty Left Princess Aleman MD Postop plan: weightbear as tolerated keep incision clean dry and intact. May change paper tape and gauze dressing as needed use regular pillow in between knees while in bed x 6 wks mild postoperative anemia no transfusion indicated. Vital signs stable practice posterior hip precautions for 6 weeks postop will have Lovenox for DVT prophylaxis while in the hospital. Discharge on 81 mg of aspirin b.i.d. for DVT prophylaxis x 4 weeks. recommend calcium and vitamin-D. 2000 units of vitamin-D daily +1200 mg of calcium outpatient DEXA scan in the next 3 months for bone density screening Tylenol and oxycodone for ibuprofen for pain may wean back down to home tramadol as tolerated DC [place] today will work with PT today wean O2 If successful with these today can dc home, otherwise anticipate discharge home tomorrow. Quality VTE Deep Vein Thrombosis/Pulmonary Embolism Present on Admission: No
[2020-04-26] MEDS: FINASTERIDE 5 MG TABLET PO (10:34)
--- NOTE | 2020-04-26 10:53 | PT.IIE ---
Current Diagnoses Fracture of unspecified part of neck of left femur, initial encounter for closed fracture (04/24/20) Surgery Performed Operation Date: 04/25/20 09:00 Actual Procedures p Hip Hemiarthroplasty(Left) - Princess Aleman MD Surgical History (Last Reviewed 04/25/20 @ 22:20 by Stu Esparza DO) Anesthesia Broken wrist (~1989) History of cataract removal with insertion of prosthetic lens History of laminectomy (~1986) History of nephrolithotomy with removal of calculi History of removal of cyst (~2004) History of testicular surgery History of tonsillectomy History of vasectomy Skin lesion (~2007) Status post hernia repair Medical History (Last Reviewed 04/25/20 @ 22:20 by Stu Esparza DO) Allergies Chicken pox Chronic back pain Chronic cough Essential (primary) hypertension Excessive daytime sleepiness Hamstring strain History of basal cell carcinoma History of hypertension Measles Mumps Obstructive sleep apnea of adult Screen for colon cancer Sinusitis Physical Therapy Inpatient Evaluation/Re-Eval M1 PT/OT-IP Prior Functional Status Start: 04/26/20 09:18 Freq: NEEDED Status: Active Protocol: Document 04/26/20 10:53 AW (Rec: 04/26/20 11:21 AW [id number]) Medical Review Prior Functional Status Medical History Reviewed No Communication Pt is an effective verbal communicator. He is [place] and has hearing aids but is not wearing them at this meeting. Mobility and Gait Independently mobile without assistive device and without meaningful limit. Activities of Daily Living and IADL's Independent with all I/ADL's. 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 Social History Household Members spouse Living Arrangements House Number of Floors (Floors) Two Floors Number of Stairs To Enter/Railing? 1 HELENA and then 4 interior stairs up to top level which includes kitchen, bathroom, bedroom, living room. Once inside, pt can stay on the upper level. Home Environment High Toilet,Walk in Shower Employment Status Retired Additional Social History Comment Pt lives with his , Nakia, in [place]. Both are retired. Pt's daughter lives in [place], [place] and is planning to come visit and provide assist when pt discharges. M2 PT-IP Current Condition Start: 04/26/20 09:18 Freq: NEEDED Status: Active Protocol: Document 04/26/20 10:53 AW (Rec: 04/26/20 11:21 AW [id number]) Physical Therapy Current Condition Current Condition Evaluation Date 04/26/20 Treatment Diagnosis L femoral neck fracture s/p hemiarthroplasty Onset Date 04/25/20 Precautions Posterior Hip Precautions No Hip Flexion > 90 degrees,No Hip Internal Rotation,No Hip Adduction Weight Bearing Status Weight Bearing Status Weight Bear as Tolerated Allowed Weight Bearing Amount (enter % WBAT LLE or #) (%) M3 PT-IP Subjective Start: 04/26/20 09:18 Freq: NEEDED Status: Active Protocol: Document 04/26/20 10:53 AW (Rec: 04/26/20 11:21 AW [id number]) Subjective Physical Therapy Visit Type Type Initial Evaluation Visit Start Time 10:26 Visit Stop Time 10:53 Total Visit Minutes 27 Notes Co-eval with OT Number of SCOW HAND Visits 0 Physical Therapy Visit Comments Patient Comments Pt is willing to participate with therapies. Patient Goals Return home and return to regular activity Therapy Pain Assessment Pain When Pain Assessed During Mobility Pain Present Pain Present Pain Reported Location left hip Intensity 6 Scale Used Numeric (0 - 10) Pain Management Techniques Re-positioning,Timing of Activity with Medications M4 PT-IP Mobility and Gait Start: 04/26/20 09:18 Freq: NEEDED Status: Active Protocol: Document 04/26/20 10:53 AW (Rec: 04/26/20 11:30 AW [id number]) PT-Bed Mobility Assessment Supine to Sit Supine to Sit Contact Guard Assistance Scooting Scooting to Edge of Bed Standby Assistance PT-Transfer Assessment Sit to and From Stand Sit to and from Stand Contact Guard Assistance,Use of Upper Extremities Equipment Transfer Assistive Device Gait Belt,Front Wheeled Walker Orthotic/Prosthetic Devices or Brace: No Transfers Transfer Destination Toilet Transfer Technique Stand Step Pivot Transfer Ability Level of Assist Contact Guard Assistance Comments Mobility Comments Educated pt on posterior hip precautions. Pt was able to exit the bed to the left side with cues for precautions and CGA. He sat EOB with good balance before standing with heavy RLE weightbearing and cues to push off from the bed vs pulling on the walker. Pt was able to shift weight laterally before ambulating to the toilet with FWW CGA. He transferred to and from the toilet with OT assisting and frequent cues for precautions. Pt then ambulated in the halls ~80 feet with FWW SBA before returning to the room. Pt was left at the sink with OT. Gait Assessment Gait Gait Assistance Required: Standby Assistance Distance (Feet) 80 Able to Maintain Weight Bearing Status Yes During Gait Assistive Devices Assistive Device Gait Belt,Front Wheeled Walker Orthotic/Prosthetic Devices or Brace: No Gait Deviations General Gait Pattern Antalgic,Decreased Stride Length,Decreased Feet Clearance,Flexed Trunk,Step-to Gait Factors Limiting Gait Function Factors Limiting Gait Function Decreased Activity Tolerance, Decreased Strength,Limited Range of Motion,Pain,Poor Balance,Poor Safety Awareness Comments Gait Comments See mobility comments for details. Stair Climbing Assessment Comments Stair Climbing Comments Pt defers stair training to PM session. PT-Balance Assessment Sitting Balance and Reactions Static Sitting Balance Ability Good Dynamic Sitting Balance Ability Good Standing Balance and Reactions Static Standing Balance Ability Good Dynamic Standing Balance Ability Good Device Used FWW M5 PT-IP Objective Assessments Start: 04/26/20 09:18 Freq: NEEDED Status: Active Protocol: Document 04/26/20 10:53 AW (Rec: 04/26/20 11:30 AW [id number]) Orientation Orientation/Cognition Level of Alertness Alert Orientation Name,Date,Day of Week,Place, Situation Language Function Ability Hard of Hearing Safety Awareness Decreased Safety Awareness Memory Description No Deficits Noted Gross Range of Motion Lower Extremity ROM Assessment Left Impaired Strength Lower Extremity Strength Assessment Left Impaired Hip 3+/5 Knee 4/5 Ankle 4+/5 Comments Strength Comments RLE grossly 5/5 Sensation Assessment Sensation Gross Sensation WNL Muscle Tone Muscle Tone WNL Yes M6 PT-IP Treatment Start: 04/26/20 09:18 Freq: NEEDED Status: Active Protocol: Document 04/26/20 10:53 AW (Rec: 04/26/20 11:30 AW [id number]) Physical Therapy Treatment Exercises Exercises Ankle Pumps,Heel Slides,Supine Hip Abduction Education Education Provided Precautions,Weight Bearing Status,Post-Op Packet,Safety Other Treatments Other Treatment Performed Provided education on role of PT, plan of care, posterior hip precautions, weightbearing status, home equipment needs. M7 PT-IP Assessment and Plan Start: 04/26/20 09:18 Freq: NEEDED Status: Active Protocol: Document 04/26/20 10:53 AW (Rec: 04/26/20 11:34 AW [id number]) PT Summary Assessment and Plan Potential Rehabilitation Potential Good Status of Condition at Evaluation Evolving Summary Impairments Pain,ROM,Strength,Balance,Bed Mobility,Transfers,Gait Assessment Summary Ed is a 79 yo man seen for PT evaluation on POD1 following left hip hemiarthroplasty for femoral neck fracture. He is independent in all regards at baseline and denies any other falls history. On evaluation, pt required SBA to CGA for all mobility with FWW. Pt would benefit from at least one more acute PT session to progress his safe mobility. Pt must clear stairs prior to discharge. Goals Bed Mobility Goal Independent Transfer Goal Independent,Front Wheeled Walker Gait Goal Independent,Front Wheel Walker Gait Distance 120 Other Goals - up/down 4 steps with R rail ascending Days to Meet Goals 3 Frequency of Treatment Frequency Of Treatment Twice a Day Treatment Plan Physical Therapy Treatment Plan Bed Mobility Training,Transfer Training,Gait Training, Therapeutic Exercise,Balance Retraining,Post Op Education, Discharge Planning,Hot or Cold Pack Other Recommendations and Next Treatment review precautions; amb as Focus tolerated with FWW; stairs Discharge Recommendations PT Discharge Recommendations Home with Assistance, Outpatient PT Equipment Needed for Home Before FWW; shower chair; grab bars Discharge Transportation Needs at Discharge Private Vehicle
--- NOTE | 2020-04-26 11:08 | OT.IP.EVAL ---
Current Diagnoses Fracture of unspecified part of neck of left femur, initial encounter for closed fracture (04/24/20) Surgery Performed Operation Date: 04/25/20 09:00 Actual Procedures p Hip Hemiarthroplasty(Left) - Princess Aleman MD Past Medical History (Last Reviewed 04/25/20 @ 22:20 by Stu Esparza DO) Allergies Chicken pox Chronic back pain Chronic cough Essential (primary) hypertension Excessive daytime sleepiness Hamstring strain History of basal cell carcinoma History of hypertension Measles Mumps Obstructive sleep apnea of adult Screen for colon cancer Sinusitis Surgical History (Last Reviewed 04/25/20 @ 22:20 by Stu Esparza DO) Anesthesia Broken wrist (~1989) History of cataract removal with insertion of prosthetic lens History of laminectomy (~1986) History of nephrolithotomy with removal of calculi History of removal of cyst (~2004) History of testicular surgery History of tonsillectomy History of vasectomy Skin lesion (~2007) Status post hernia repair Occupational Therapy Inpatient Evaluation/Re-Eval M1 PT/OT-IP Prior Functional Status Start: 04/26/20 09:18 Freq: NEEDED Status: Active Protocol: Document 04/26/20 12:13 CGR (Rec: 04/26/20 12:30 CGR [id number]) Medical Review Prior Functional Status Medical History Reviewed No Communication Pt is an effective verbal communicator. He is [place] and has hearing aids but is not wearing them at this meeting. Mobility and Gait Independently mobile without assistive device and without meaningful limit. Activities of Daily Living and IADL's Independent with all I/ADL's. 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 Social History Household Members spouse Living Arrangements House Number of Floors (Floors) Two Floors Number of Stairs To Enter/Railing? 1 HELENA and then 4 interior stairs up to top level which includes kitchen, bathroom, bedroom, living room. Once inside, pt can stay on the upper level. Home Environment High Toilet,Walk in Shower Employment Status Retired Additional Social History Comment Pt lives with his , Nakia, in [place]. Both are retired. Pt's daughter lives in [place], [place] and is planning to come visit and provide assist when pt discharges. Pt's is talking to friends to obtain 2WW, shower chair, and BSC for over toilet. M2 OT-IP Current Condition Start: 04/26/20 11:34 Freq: Status: Active Protocol: Document 04/26/20 12:13 CGR (Rec: 04/26/20 12:30 CGR [id number]) Occupational Therapy Current Condition Current Condition Evaluation Date 04/26/20 Treatment Diagnosis Fall with L hip fx s/p 04/25 L hip jose martin arthroplasty Diagnosis Onset Date 04/24/20 Post Operative Precautions Posterior Hip Precautions No Hip Flexion > 90 degrees,No Hip Internal Rotation,No Hip Adduction Weight Bearing Status Weight Bearing Status Weight Bear as Tolerated M3 OT- IP Subjective and Pain Start: 04/26/20 11:34 Freq: Status: Active Protocol: Document 04/26/20 12:13 CGR (Rec: 04/26/20 12:30 CGR [id number]) OT- Subjective Occupational Therapy Visit Type Type Initial Evaluation Visit Start Time 10:26 Visit Stop Time 11:08 Total Visit Minutes 42 Notes Partial co-treat with P.T. OT Pain Assessment Pain When Pain Assessed During Mobility Pain Present Pain Present Pain Reported Location left hip Intensity 6 Scale Used Numeric (0 - 10) Management Techniques Distraction,Modification of Treatment,Re-positioning M4 OT- IP ADL's Start: 04/26/20 11:34 Freq: Status: Active Protocol: Document 04/26/20 12:13 CGR (Rec: 04/26/20 12:30 CGR [id number]) OT [id number] Comments OT Self-Feeding Comments Not meal time OT ADL-Grooming Comments OT Grooming Comments Not performed OT ADL-Oral Care General Eval Oral Care Ability Independent Comments Oral Care Comments standing at sink for cleaning retainers OT ADL-Dressing Comments OT Dressing Comments Not performed. Discussed with pt and pt's spouse regarding use of hip kit and restrictions to movement that would require either hip kit or help for dressing. Pt states understanding and says that he will have his perform for him and declined hip kit. OT ADL-Toileting General Evaluation Toileting Ability Standby Assistance Devices Toileting Assistive Devices Grab Bars Comments OT Toileting Comments Pt performed simulated toileting as he did not have to void at that time. Pt needed the use of the grab bar for standing and states agreement to adding grab bars in the future but using the BSC over the toilet for hand rails at this time. OT ADL-Bathing Comments OT Bathing Comments Not performed M5 OT- IP IADL's Start: 04/26/20 11:34 Freq: Status: Active Protocol: Document 04/26/20 12:13 CGR (Rec: 04/26/20 12:30 CGR [id number]) OT-Instrumental Activities of Daily Living Deficits IADL Deficits Identified No Deficits Home Safety Awareness Awareness of Need for Assistance at Home Good Awareness Ability to Problem Solve Emergency Able to Problem Solve Situations Medication Management Medication Management No Deficits Identified Money Management Money Management No Deficits Identified Meal Preparation Meal Preparation Caregiver Provides Assist Quilter Fixer Quilter Fixer Caregiver Provides Assist Driving Driving Comments 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 Pt understand that he should not drive till cleared by . M6 OT- IP Functional Cognition Start: 04/26/20 11:34 Freq: Status: Active Protocol: Document 04/26/20 12:13 CGR (Rec: 04/26/20 12:30 CGR [id number]) Cognitive Factors Limiting Selfcare Function Cognitive Ability Level of Alertness Alert Patient Orientation Name,Age,Birthday,Month,Date, Year,Day of Week,Place, Situation Attention Span Ability Capable of Focused Attention, Capable of Sustained Attention Ability to Follow Commands Able to Follow Multi-Step Commands Memory Description No Deficits Noted Safety Awareness No Deficits Noted Problem Solving Ability No deficits Noted OT- Vision and Hearing OT- Hearing Assessment OT- Hearing Assessment Hearing Impaired OT- Vision Assessment Visual Acuity Glasses All The Time Visual Attentiveness WFL Occular Pursuits WFL Visual Convergence WFL M7 OT- IP Mobility and Balance Start: 04/26/20 11:34 Freq: Status: Active Protocol: Document 04/26/20 12:13 CGR (Rec: 04/26/20 12:30 CGR [id number]) OT- Bed Mobility Assessment Supine to Sit Supine to Sit Assist Minimal Assistance Scooting Scooting to Edge of Bed Standby Assistance OT-Transfer Assessment Sit to and From Stand Sit to and from Stand Standby Assistance Transfers Transfer Ability Standby Assistance Technique Transfer Destination Bed,Chair,Toilet Transfer Technique Stand Step Pivot Devices Transfer Assistive Devices Gait Belt,Front Wheeled Walker Comments Mobility Comments Mobility around the room and into the benitez with PT OT- Gait Assessment Gait Gait Assistance Required: Standby Assistance Assistive Devices Assistive Device Gait Belt,Front Wheeled Walker OT- Balance Assessment Sitting Balance and Reactions Static Sitting Balance Ability Good Dynamic Sitting Balance Ability Good M8 OT- IP Objective Assessments Start: 04/26/20 11:34 Freq: Status: Active Protocol: Document 04/26/20 12:13 CGR (Rec: 04/26/20 12:30 CGR [id number]) OT Gross Range of Motion Upper Extremity Range of Motion Assessment Within Functional Limits OT Strength Upper Extremity Strength Assessment Within Functional Limits OT- Coordination Assessment Upper Extremity Finger to Nose Test Within Functional Limits Finger Tapping Test Within Functional Limits OT-Muscle Tone Assessment Muscle Tone WNL Yes OT Sensation Assessment Edema Edema Absent M9 OT- IP Assessment and Plan Start: 04/26/20 11:34 Freq: Status: Active Protocol: Document 04/26/20 12:13 CGR (Rec: 04/26/20 12:30 CGR [id number]) OT Summary Assessment and Plan Potential Rehabilitation Potential Excellent Analytic Complexity at Evaluation Low Summary OT Impairments Pain,Functional Mobility, Dressing,Toileting,Bathing, Toilet Transfers,Shower Transfers,Activity Tolerance Progress Towards Goals Progressing Toward Goals Assessment Summary Pt presents as a low complexity evaluation s/p admit after GLF with L hip fx. Pt underwent L hip hemiarthroplasty on 04/25/20. Pt is progressing well and may discharge home today. Pt educated on hip precautions and offered hip kit training for LB dressing but pt declined stating that he will have his spouse assist. Pt would benefit from shower training if he stays another day. OK for discharge home with family support. Goals Bathing Goal Standby Assistance,Grab Bars, Hand Held Shower Sprayer Shower Transfer Goal Standby Assistance Days to Meet Goals 1 Frequency of Treatment Frequency Of Treatment Once a Day Treatment Plan OT Treatment Plan ADL Training,Functional Mobility,Patient/Family Education,Discharge Planning Other Treatment Recommendations and Next shower Treatment Focus Discharge Recommendations OT Discharge Recommendations Home with Assistance Home Equipment Needs BSC for over toilet, shower chair, 2ww Transportation Needs at Discharge Private Vehicle
--- NOTE | 2020-04-26 12:39 | CM.DPC ---
DCP Cont: Checked in with patient, he was sitting up in his chair having lunch, , Liz, was in the room as well. [place]. worked with patient, will be back to work with him again later. Patient stated, he should be going home today. They have a daughter that lives in [place], [place], and will be staying with patient as well. They also have friends to assist if necessary. P: DCP to continue to follow. Patient should be going home, may possibly go today, after he has another session with Ilana. Fauzia Carpenter RN/[employer]
--- NOTE | 2020-04-26 14:17 | PT.IPTN ---
Current Diagnoses Fracture of unspecified part of neck of left femur, initial encounter for closed fracture (04/24/20) Surgery Performed Operation Date: 04/25/20 09:00 Actual Procedures p Hip Hemiarthroplasty(Left) - Princess Aleman MD Physical Therapy Treatment Note M2 PT-IP Current Condition Start: 04/26/20 09:18 Freq: NEEDED Status: Active Protocol: Document 04/26/20 10:53 AW (Rec: 04/26/20 11:21 AW [id number]) Physical Therapy Current Condition Current Condition Evaluation Date 04/26/20 Treatment Diagnosis L femoral neck fracture s/p hemiarthroplasty Onset Date 04/25/20 Precautions Posterior Hip Precautions No Hip Flexion > 90 degrees,No Hip Internal Rotation,No Hip Adduction Weight Bearing Status Weight Bearing Status Weight Bear as Tolerated Allowed Weight Bearing Amount (enter % WBAT LLE or #) (%) M3 PT-IP Subjective Start: 04/26/20 09:18 Freq: NEEDED Status: Active Protocol: Document 04/26/20 14:17 AW (Rec: 04/26/20 14:37 AW [id number]) Subjective Physical Therapy Visit Type Type Treatment Note Visit Start Time 13:49 Visit Stop Time 14:15 Total Visit Minutes 26 Notes Pt's present to participate in caregiver training Number of [employer] Visits 0 Physical Therapy Visit Comments Patient Comments Pt is willing to do stair training. Therapy Pain Assessment Pain When Pain Assessed During Mobility Pain Present Pain Present Pain Reported Location left hip Intensity 6 Scale Used Numeric (0 - 10) Pain Management Techniques Apply Cold,Re-positioning, Timing of Activity with Medications M4 PT-IP Mobility and Gait Start: 04/26/20 09:18 Freq: NEEDED Status: Active Protocol: Document 04/26/20 14:17 AW (Rec: 04/26/20 14:37 AW [id number]) PT-Bed Mobility Assessment Supine to Sit Supine to Sit Contact Guard Assistance Scooting Scooting to Edge of Bed Standby Assistance PT-Transfer Assessment Sit to and From Stand Sit to and from Stand Contact Guard Assistance,Use of Upper Extremities Equipment Transfer Assistive Device Gait Belt,Front Wheeled Walker Orthotic/Prosthetic Devices or Brace: No Transfers Transfer Destination Chair Transfer Technique Stand Step Pivot Transfer Ability Level of Assist Standby Assistance,Contact Guard Assistance Comments Mobility Comments Pt was reclined in the bed as PT arrived. He completed supine to sit, exiting the bed to the left side, with good attention to hip precautions. Pt stood from the bed CGA and used the FWW to ambulate 50 feet to the stairs and 50 feet back to the room SBA. He transferred to the chair CGA. He stood and sat again with his providing safe CGA. Pt was positioned on the chair with call light and all needs within reach. Gait Assessment Gait Gait Assistance Required: Standby Assistance Distance (Feet) 100 Able to Maintain Weight Bearing Status Yes During Gait Assistive Devices Assistive Device Gait Belt,Front Wheeled Walker Orthotic/Prosthetic Devices or Brace: No Gait Deviations General Gait Pattern Antalgic,Decreased Stride Length,Decreased Feet Clearance,Flexed Trunk,Step-to Gait Factors Limiting Gait Function Factors Limiting Gait Function Decreased Activity Tolerance, Decreased Strength,Limited Range of Motion,Pain,Poor Balance,Poor Safety Awareness Comments Gait Comments See mobility comments for details. Stair Climbing Assessment Evaluation Level of Assist On Stairs Contact Guard Assistance,1 Person Assistance Devices Stair Climbing Assistive Devices Right Railing Technique/Endurance Stair Climbing Direction Ascend and Descend Stair Climbing Technique Step to Step Number of Steps Climbed 4 Stair Climbing Set # Repetitions (reps) 1 Comments Stair Climbing Comments Educated pt and his on stair climbing technique. Pt descended 4 stairs in the ICU stairwell using L rail down with CGA. PT-Balance Assessment Sitting Balance and Reactions Static Sitting Balance Ability Good Dynamic Sitting Balance Ability Good Standing Balance and Reactions Static Standing Balance Ability Good Dynamic Standing Balance Ability Good Device Used FWW M5 PT-IP Objective Assessments Start: 04/26/20 09:18 Freq: NEEDED Status: Active Protocol: Document 04/26/20 10:53 AW (Rec: 04/26/20 11:30 AW [id number]) Orientation Orientation/Cognition Level of Alertness Alert Orientation Name,Date,Day of Week,Place, Situation Language Function Ability Hard of Hearing Safety Awareness Decreased Safety Awareness Memory Description No Deficits Noted Gross Range of Motion Lower Extremity ROM Assessment Left Impaired Strength Lower Extremity Strength Assessment Left Impaired Hip 3+/5 Knee 4/5 Ankle 4+/5 Comments Strength Comments RLE grossly 5/5 Sensation Assessment Sensation Gross Sensation WNL Muscle Tone Muscle Tone WNL Yes M6 PT-IP Treatment Start: 04/26/20 09:18 Freq: NEEDED Status: Active Protocol: Document 04/26/20 14:17 AW (Rec: 04/26/20 14:37 AW [id number]) Physical Therapy Treatment Exercises Exercises Ankle Pumps,Heel Slides,Supine Hip Abduction Education Education Provided Precautions,Weight Bearing Status,Safety Other Treatments Other Treatment Performed Pt's reports friends are coming today to loan equipment and assist the pt into the house. M7 PT-IP Assessment and Plan Start: 04/26/20 09:18 Freq: NEEDED Status: Active Protocol: Document 04/26/20 14:17 AW (Rec: 04/26/20 14:37 AW [id number]) PT Summary Assessment and Plan Potential Rehabilitation Potential Good Status of Condition at Evaluation Evolving Summary Impairments Pain,ROM,Strength,Balance,Bed Mobility,Transfers,Gait Progress Towards Goals Progressing Toward Goals,Slow Progress due to Pain Assessment Summary Ed was able to progress his gait and complete stair training with his . Pt's was able to provide appropriate level of assist and understood all precautions . Once medically cleared, pt will be safe to discharge home with assist and outpatient PT . Goals Bed Mobility Goal Independent Transfer Goal Independent,Front Wheeled Walker Gait Goal Independent,Front Wheel Walker Gait Distance 120 Other Goals - up/down 4 steps with R rail ascending Days to Meet Goals 3 Frequency of Treatment Frequency Of Treatment Twice a Day Treatment Plan Physical Therapy Treatment Plan Bed Mobility Training,Transfer Training,Gait Training, Therapeutic Exercise,Balance Retraining,Post Op Education, Discharge Planning,Hot or Cold Pack Other Recommendations and Next Treatment review precautions; amb as Focus tolerated with FWW; stairs Recommendations To Nursing Amount of Assist Needed 1 Person Assist Discharge Recommendations PT Discharge Recommendations Home with Assistance, Outpatient PT Equipment Needed for Home Before FWW; shower chair; grab bars Discharge Transportation Needs at Discharge Private Vehicle
--- NOTE | 2020-04-26 15:05 | PM.DS.1 ---
History of Present Illness History of Present Illness Date Patient Seen: 04/26/20 Chief complaint: GLF, Left hip pain Narrative: Patient is a 79-year-old male at [facility], who presented to the emergency room via ambulance following a ground level fall and left hip injury. Patient has a history of sleep apnea, BPH, basal cell carcinoma, kidney stones, chronic sinusitis, and history of hypertension that he was able to resolve with diet and lifestyle changes. Upon admit patient reports that he was trying to get onto his tractor when he tripped over a raised piece of concrete, a colleague was present, patient was unable to get up independently, denies hitting his head or loss of consciousness. Patient denies experiencing any chest pain, shortness of breath, shortness of breath, changes in vision, balance or coordination issues, weakness, dizziness prior during or following fall. His colleague had call ambulance for transport approximately 5:00 p.m. afternoon. At this time patient states that his pain is well controlled at a 6/10 due to medication management the emergency room. Patient denies any recent illness, frequent falls, injury, or trauma, any abnormal bruising bleeding disorders, or skin conditions or infection. Discharge Providers Provider Date of admission: 04/24/20 19:35 Discharge Date: 04/26/20 Primary care physician: Brando Infante DO Consults: 04/24/20 20:39 Consult to Discharge Planning Routine Comment: 04/24/20 20:40 Consult to Occupational Therapy Evaluate & Treat Comment: Physician Instructions: Evaluate and treat Consult to Physical Therapy Evaluate & Treat Comment: Physician Instructions: Evaluate and Treat 04/24/20 20:45 Consult to Respiratory Therapy Evaluate & Treat Comment: Sleep apnea PAP use Physician Instructions: Evaluate and treat 04/25/20 09:20 Consult to Respiratory Therapy Evaluate & Treat Comment: Physician Instructions: Evaluate and treat 04/25/20 13:56 Consult to Discharge Planning Routine Comment: Consult to Physical Therapy Evaluate & Treat Comment: Physician Instructions: post op DONTE protocol Consult to Respiratory Therapy Evaluate & Treat Comment: Physician Instructions: Evaluate and treat Discharge provider: Sandra Fajardo MD Summary Hospital Course Discharge Diagnosis: 1. S/p Left Hip Hemiarthroplasty 2. s/p fall 3. Acute hypoxic respiratory failure 4. Obstructive Sleep Apnea 5. BPH 6. Hypertension Hospital Course: Patient was admitted to the hospital folloiwng a fall. He underwent surgical repair to include a left hip hemiarthroplasty. Patient developed some hypoxia post operatively. He required BIpap with 100% FIO2. He was able to be successfully weaned off and tapered to CPAP and ultimately weaned off oxygen totally. His pain was well controlled. Patient was able to ambulate with Physical Therapy, had his rolle removed and was deemed appropriate for discharge home. Patient's blood pressure was elevated during the hospital stay towards the end of his admission. He will follow-up with his primary care provider for further evaluation as an outpatient. Status at Discharge Cognitive/behavioral status at discharge: oriented Functional status at discharge: independent ambulation Overall status at discharge: patient is not back to baseline Time Spent with Patient Time spent: Less than 30 minutes Exam Vital Signs (past 8 hours): - 04/26/20 08:00 04/26/20 08:35 04/26/20 12:00 Temperature 98.1 F Pulse Rate 66 59 L Respiratory Rate 18 16 Blood Pressure 169/77 H Pulse Oximetry 95 96 94 Fraction of Inspired Oxygen 30 Oxygen Delivery Method Room Air Oxygen Flow Rate 0 Narrative Exam Narrative: Pleasant male resting comfortably in no obvious distress Lungs: Clear to auscultation Cardiac exam: Regular rate and rhythm normal S1-S2 Abdomen: Soft nontender nondistended Left hip with dressing in place no exudate noted Objective Labs Result Diagrams: 04/26/20 04:30 04/25/20 05:05 Labs: Laboratory Results - last 24 hr 04/25/20 04/26/20 13:55 04:30 Hgb 11.0 L Hct 34.2 L Nasal Screen MRSA (PCR) Negative for mrsa PENDING SALE TO [facility] Medical History Allergies Chicken pox Chronic back pain Chronic cough Essential (primary) hypertension Excessive daytime sleepiness Hamstring strain History of basal cell carcinoma History of hypertension Measles Mumps Obstructive sleep apnea of adult Screen for colon cancer Sinusitis Surgical History Anesthesia Broken wrist (~1989) History of cataract removal with insertion of prosthetic lens History of laminectomy (~1986) History of nephrolithotomy with removal of calculi History of removal of cyst (~2004) History of testicular surgery History of tonsillectomy History of vasectomy Skin lesion (~2007) Status post hernia repair Family History Father Diabetes mellitus Heart disease Stroke Prostate cancer Mother Cancer Nervous breakdown Sister Cancer Grandfather Heart disease Grandmother Heart disease Grandfather No problems noted. Social History marital status: details: eneida Yee, lives in [place] household members: spouse lives independently: Yes caregiver/support person: No Smoking Status: Never smoker second hand exposure: No alcohol intake: never substance use type: does not use Discharge Assessment & Plan Assessment and Plan Assessment: 1. Left femoral neck fracture, status post left hemiarthroplasty 2. Probable osteoporosis 3. Hypertension 4. BPH Plan of Treatment: Discharge home Medications as prescribed Follow-up with PCP next week regarding blood pressure management Discharge Plan Discharge Plan Patient Disposition: Home Discharge orders & Medications Prescriptions: New aspirin 81 mg tablet,delayed release (DR/EC) 81 mg PO BID 28 Days Qty: 56 RF: 0 lisinopril 10 mg tablet 10 mg PO DAILY Qty: 30 RF: 3 Continued finasteride 5 mg tablet 5 mg PO BEDTIME RF: 0 cetirizine [Zyrtec] 10 mg tablet 10 mg PO DAILY RF: 0 tamsulosin 0.4 mg capsule 0.8 mg PO BEDTIME RF: 0 ipmbssuu-ulu-ynlqi-vit K-lycop [One-A-Day Men's 50 Plus] 400-20-370 mcg tablet 1 tab PO DAILY RF: 0 ibuprofen 400 mg Tablet 400 mg PO Q6H PRN (Reason: Pain (Scale Score 1-3)) Qty: 0 RF: 0 ipratropium bromide 0.03 % spray,non-aerosol 2 spray NASAL BID RF: 0 clindamycin phosphate 1 % solution See Rx Instructions TOP BID PRN (Reason: Skin Irritation) RF: 0 tramadol 50 mg tablet 50 mg PO BID PRN (Reason: pain) Qty: 20 RF: 0 Guaifenesin LA 600 mg Tablet Extended Release 600 mg PO BID RF: 0 clobetasol 0.05 % cream 1 applictn TOP BID PRN (Reason: Skin Irritation) RF: 0 Discontinued aspirin [Adult Low Dose Aspirin] 81 mg tablet,delayed release (DR/EC) 81 mg PO DAILY RF: 0 No Action (DME) Respironics Dreamstation CPAP Qty: 1 RF: 0 Follow up/Referrals: Brando Infante DO [Primary Care Provider] - Diet/Activity/Treatments Diet: Low-sodium Visit Report/Discharge Packet Instructions: DI for Hip Replacement Discharge Data Primary Care Provider: Brando Infante Quality VTE Deep Vein Thrombosis/Pulmonary Embolism Present on Admission: No
--- NOTE | 2020-04-26 16:11 | PC.NURSE ---
Evening shift note: Pt discharged with all belongings, discharge paperwork reviewed, questions answered, paperwork signed. Pt taken via wheelchair to car, no further patient contact at this time.
== END 2020-04-26 16:09 | disposition home or self-care (01) | DRG 521 ==
LOC: ED 19:34 → AC 19:35 → ICU 04-25 13:27
PROVIDERS: Orthopaedic Surgery Foot and Ankle Surgery; Admitting Provider Nurse Practitioner Family; Emergency Provider Emergency Medicine; PCP Family Medicine; Referring Provider Emergency Medicine; Visit Provider Nurse Practitioner Family
PROC: 0SRS0JZ Replacement of Left Hip Joint, Femoral Surface with Synthetic Substitute, Open Approach (ICD-10-PCS; CPT 27125; principal; 2020-04-25 09:00)
DX: S72.012A Unspecified intracapsular fracture of left femur, initial encounter for closed fracture (principal); J96.01 Acute respiratory failure with hypoxia; G47.33 Obstructive sleep apnea (adult) (pediatric); R19.05 Periumbilic swelling, mass or lump; N40.0 Benign prostatic hyperplasia without lower urinary tract symptoms; I10 Essential (primary) hypertension; W01.0XXA Fall on same level from slipping, tripping and stumbling without subsequent striking against object, initial encounter; Z20.822 Contact with and (suspected) exposure to COVID-19
CPT/HCPCS: 36415; 72170; 73502; 76705; 80048; 80053; 81001; 83735; 85014; 85018; 85025; 85610; 87635; 87797; 94660; 96374; 97116; 97161; 97165; 97530; 97535; 99283; 99284; C1776; C9803; C9290; J0171; J0690; J1170; J1650; J2274; J2704; J3010

== ENCOUNTER → 2020-05-01 11:57 | Outpatient (CLI) | payer OTHER, SELFPAY ==
[2020-04-24 20:50] VITALS: BMI 28.4
[2020-04-25 14:09] VITALS: PULSE 59; RESP 18; O2SAT 97
[2020-05-01 12:22] LABS: Bacteria Urine None Seen; RBC Urine None Seen (0-5/HPF)
[2020-05-01 13:08] LABS: Appearance Urine UA CLEAR; Bilirubin Urine UA NEGATIVE (NEGATIVE); Color Urine UA YELLOW; Glucose Urine UA NEGATIVE (Negative); Ketones Urine UA NEGATIVE (NEGATIVE); Leukocyte Esterase Urine UA NEGATIVE (NEGATIVE); Nitrite Urine UA NEGATIVE (Negative); Occult Blood Urine UA NEGATIVE (Negative); Protein Urine UA NEGATIVE (Negative); Specific Gravity Urine UA 1.015 (1.000-1.035); Urobilinogen Urine UA 0.2 E.U./dL (0.2); pH Urine UA 6.5 (4.5-8.0)
[2020-05-01 13:27] LABS: Squamous Epithelial Cell Urine 0-1 /HPF (0-5/HPF); WBC Urine 0-1/HPF (0-5/HPF)
[2020-05-01 13:28] LABS: Culture Indicated Urine Cult Not Indicated
== END ==
PROVIDERS: PCP Family Medicine; Referring Provider Family Medicine; Visit Provider Family Medicine
DX: N39.0 Urinary tract infection, site not specified (principal); R39.9 Unspecified symptoms and signs involving the genitourinary system
CPT/HCPCS: 81001

== ENCOUNTER → 2020-06-03 14:13 | Outpatient (CLI) | payer MEDICARE, SELFPAY ==
[2020-04-25 14:09] VITALS: PULSE 59; RESP 18; O2SAT 97
[2020-06-03] MEDS: COVID-19 VACC, Ad26(JANSSEN)/PF 0.5 ML IM (14:30)
== END ==
PROVIDERS: PCP Family Medicine; Visit Provider Internal Medicine
DX: Z23 Encounter for immunization (principal)
CPT/HCPCS: 0031A; 91303

== ENCOUNTER → 2020-07-23 14:06 | Outpatient (CLI) | payer OTHER, SELFPAY ==
[2020-04-25 14:09] VITALS: PULSE 59; RESP 18; O2SAT 97
== END ==
PROVIDERS: PCP Family Medicine; Referring Provider Orthopaedic Surgery Foot and Ankle Surgery; Visit Provider Orthopaedic Surgery Foot and Ankle Surgery
DX: M85.851 Other specified disorders of bone density and structure, right thigh (principal)
CPT/HCPCS: 77080; 77081

== ENCOUNTER → 2020-09-09 08:34 | Outpatient (CLI) | payer OTHER, SELFPAY ==
[2020-04-25 14:09] VITALS: PULSE 59; RESP 18; O2SAT 97
--- NOTE | 2020-09-11 14:23 | PM.TREADMILL ---
Cardiac Stress Test Report Referral & Results Date Patient Seen: 09/11/20 Requesting provider: Brando Infante Indication: Abnormal ECG Rest ECG: Interventricular conduction delay, nonspecific Procedure Note: Today following both written and verbal informed consent the patient was exercised according to a standard Dereje protocol patient went for a total of 4 minutes 20 seconds achieving a maximum heart rate of 145 maximum systolic blood pressure of 168. This is approximately 7.0 METS. Exercise was terminated at this point because of targets were met, and inability of patient to continue. Patient was also given Cardiolite through a previously started Hep-Lock IV by the diagnostic imaging staff approximately 1 minute prior to the cessation of exercise. There are no ST-T segment changes identified in his baseline abnormal ECG Normal heart rate and blood pressure response to exercise Function aerobic impairment rates about 22% on the sedentary scale Frequent PACs were identified in recovery perhaps the source of patient's identified dysrhythmia as an outpatient in the clinic. Rare PVC Impression: No ECG evidence of ischemia Occasional PAC and rare PVC Please see perfusion imaging report as well Please note: Actual ECG tracings can be found in the PACS system.
--- NOTE | 2020-09-11 19:01 | DI.NM.S_ITS ---
DATE OF SERVICE: 09/09/2020 PROCEDURE PERFORMED: Exercise treadmill stress and rest myocardial perfusion imaging with gating to assess ejection fraction and regional wall motion. REFERRING PROVIDER: Dr. Brando Infante. INDICATIONS: The patient is a 79-year-old male with an abnormal ECG and an irregular rhythm. CARDIAC STRESS: The patient exercised for 4 minutes 20 seconds on a standard Dereje protocol, suggesting moderately impaired exercise capacity with an TOSHIA of +17%, being limited in part by hip pain. He had a normal heart rate and blood pressure response, achieving a maximum heart rate of 145 BPM (102% of his predicted maximum). He had no chest discomfort. His resting ECG shows sinus rhythm with left axis deviation consistent with a left anterior fascicular block or possible old inferior infarct. There appears to be sinus arrhythmia, as well as occasional PACs. With exercise, there are no significant ST-segment shifts. He had occasional PACs, rarely in couplets, but no concerning arrhythmias. At 3 minutes 20 seconds of exercise at a heart rate of 122 BPM, 25.9 millicuries of technetium-99m Myoview was injected and he was imaged 20 minutes later using a gated SPECT acquisition protocol. Several days earlier while at rest, he had been injected with 24.9 millicuries of technetium-99m Myoview and was imaged 30 minutes later, again using a gated SPECT acquisition protocol. FINDINGS: 1. Raw data: There is fair myocardial tracer uptake and there is some evidence for a diaphragmatic attenuation. Lung/heart ratio is normal at 0.34 with a normal TID ratio of 0.73. 2. Quantitated gated SPECT: Post-stress ejection fraction is estimated at 67% without any focal wall motion abnormality and specifically the inferior wall appears to have normal contractility. The resting ejection fraction is 70% with a similar contraction pattern. Left ventricular volumes are mildly increased with a resting end-diastolic volume of 147 mL. 3. The post-stress supine images show a mild perfusion defect in the proximal inferior wall and inferior septum, extending slightly into the mid to distal inferolateral wall, but sparing the apex. This would be in a pattern that could be consistent with diaphragmatic attenuation, supported in part by the prone images, which show a near-complete resolution of this defect, although a very subtle defect remains present at the very base of the inferior wall. The resting images show an identical perfusion pattern without any clear improvement in the inferior and inferolateral defect. IMPRESSION: 1. Probable normal myocardial perfusion study. 2. Moderate, fixed proximal to mid inferior and distal inferolateral defect that predominantly resolves on prone imaging, although a very slight defect remains present. This most likely reflects diaphragmatic attenuation artifact, although a previous nontransmural infarction cannot be entirely excluded, although the lack of any wall motion abnormality in this area would mitigate against this. There is no evidence for any significant myocardial ischemia. 3. Normal left ventricular systolic function without any focal wall motion abnormality. Left ventricular volumes are mildly increased. 4. Moderately reduced exercise capacity without angina or ECG evidence of ischemia. He demonstrates sinus arrhythmia at rest and has occasional PACs, rarely in couplets with exercise, but no concerning arrhythmias. David Vivar - NI/duane/armani doc#: [id number]/job#: [id number] dd: 09/11/2020 16:56:00 dt: 09/11/2020 18:21:00 DICTATING MD/COPIES TO: Galindo Clark MD; Saeed Goss MD COPIES MNE: MARLYS;
== END ==
PROVIDERS: PCP Family Medicine; Referring Provider Family Medicine; Visit Provider Family Medicine
DX: R94.31 Abnormal electrocardiogram [ECG] [EKG] (principal)
CPT/HCPCS: 78452; 93016; 93017; 93018; A9502

== ENCOUNTER → 2020-09-09 10:03 | Outpatient (CLI) | payer OTHER, SELFPAY ==
[2020-04-25 14:09] VITALS: PULSE 59; RESP 18; O2SAT 97
[2020-09-09 10:56] LABS: COVID19 -Nasal RAPID Negative (Negative)
== END ==
PROVIDERS: PCP Family Medicine; Visit Provider Nurse Practitioner Family
DX: Z20.822 Contact with and (suspected) exposure to COVID-19 (principal)
CPT/HCPCS: 87635; C9803